=== PATIENT | female | born 1985 | race Caucasian/White ===

== ENCOUNTER 2016-11-04 18:43 | Emergency (ER) | payer OTHER ==
[2016-11-04 20:00] VITALS: RESP 20
--- NOTE | 2016-11-04 20:02 | ED ---
General Adult HPI - General Stated complaint: rt leg pain Time Seen by Provider: 11/04/16 19:59 Source: RN notes reviewed - History of Present Illness Initial comments: 30-year-old female presents emergency Department chief complaint of right knee pain. Patient states that she tripped on her stairs. Patient states that she is having pain to the anterior right knee. Patient states it is tender to touch. Patient states that she has been able to walk on it. Patient denies any fever chills with this. Patient denies any cough cold runny nose. Patient states there is no lightheadedness or dizziness before fall. She does have a history of a DVT to that leg that she is currently being treated with warfarin for. Patient states she was concerned with the anterior knee pain so she thought that she should be evaluated.Patient denies any recent fever, chills, shortness of breath, chest pain, back pain, abdominal pain, nausea vomiting, numbness or tingling, dysuria or hematuria, constipation or diarrhea, headaches or visual changes, or any other current symptoms. - Related Data Home Medications Medication Instructions Recorded Confirmed Warfarin [Coumadin] 5 mg PO DAILY 11/04/16 11/04/16 traMADol HCL [Ultram] 50 mg PO Q6HR PRN 11/04/16 11/04/16 Previous Rx's Medication Instructions Recorded Cyclobenzaprine [Flexeril] 10 mg PO TID #20 tab 04/18/16 Dexamethasone 0.75 mg PO DIRECTED #12 tablet 04/18/16 Ibuprofen [Motrin] 600 mg PO Q6HR PRN #40 day 04/18/16 Allergies Allergy/AdvReac Type Severity Reaction Status Date / Time acetaminophen [From Tylenol] AdvReac Unknown Nausea & Verified 11/04/16 20:02 Vomiting propoxyphene napsylate AdvReac Unknown Nausea & Verified 11/04/16 20:02 [From Darvocet-N 100] Vomiting aspirin AdvReac Vomiting Verified 11/04/16 20:02 hydrocodone bitartrate AdvReac Vomiting Verified 11/04/16 20:02 [From Lortab] Review of Systems ROS Statement: Those systems with pertinent positive or pertinent negative responses have been documented in the HPI. ROS Other: All systems not noted in ROS Statement are negative. Past Medical History Past Medical History: Asthma Additional Past Medical History / Comment(s): ASTHMA(NO MEDS), "SLIPPED DISC LOWER BACK", PAINFUL LUMP LEFT FLANK. History of Any Multi-Drug Resistant Organisms: None Reported Past Surgical History: Cholecystectomy, Tubal Ligation Past Anesthesia/Blood Transfusion Reactions: No Reported Reaction, Motion Sickness Past Psychological History: ADD/ADHD, Anxiety Smoking Status: Former smoker Past Alcohol Use History: None Reported Past Drug Use History: None Reported - Past Family History Mother Family Medical History: No Reported History General Exam - General Exam Comments Initial Comments: General: The patient is awake and alert, in no distress, and does not appear acutely ill. Neck: The neck is supple, there is no tenderness. Cardiovascular: There is a regular rate and rhythm. No murmur, rub or gallop is appreciated. Respiratory: Lungs are clear to auscultation, respirations are non-labored, breath sounds are equal. No wheezes, stridor, rales, or rhonchi. Musculoskeletal: Sensation intact with 2+ pulses. The left showing. Vital motion of right ankle me and hit. Patient does have anterior tenderness diffusely throughout the right knee with no abrasion deformity or ecchymosis or swelling noted. 5 out of 5 muscle strength testing. Neurological: CN II-XII intact, There are no obvious motor or sensory deficits. Coordination appears grossly intact. Speech is normal. Skin: Skin is warm and dry and no rashes or lesions are noted. Psychiatric: Normal mood and affect. Course Vital Signs 11/04/16 19:58 Temperature 98.7 F Pulse Rate 73 Respiratory 20 Rate Blood Pressure 112/73 O2 Sat by Pulse 100 Oximetry Medical Decision Making - Medical Decision Making 30-year-old female presents for appears to be a right knee contusion. X-rays are reviewed. We discussed continuing her medications at home. We discussed return parameters and follow-up. We discussed ice. We discussed all the patient's questions. They state due to the treatment plan. They will be discharged home. - Radiology Data Radiology results: report reviewed, image reviewed Disposition Clinical Impression: Contusion of right knee Disposition: HOME SELF-CARE Condition: Stable Instructions: Knee Pain (ED) Additional Instructions: Please use medication as discussed. Please follow up with family doctor if symptoms have not improved over the next two days. Please return to the emergency room if your symptoms increase or worsen or for any other concerns. Referrals: Thaddeus Craft DO [Primary Care Provider] - 1-2 days Time of Disposition: 20:22
--- NOTE | 2016-11-04 20:20 | XR ---
EXAMINATION TYPE: XR knee complete RT DATE OF EXAM: 11/04/2016 8:06 PM COMPARISON: NONE HISTORY: Pain following downstairs TECHNIQUE: Three-view right knee FINDINGS: No acute fractures are evident. No joint effusion is evident. Soft tissues appear normal. J oint spaces are preserved. Follow-up study can be performed 7-10 days from acute trauma for continued pain. IMPRESSION: 1. Normal three-view right knee.
[2016-11-04 20:35] VITALS: BP 114/70; PULSE 77; TEMP 98.2
== END 2016-11-04 20:34 | disposition home or self-care (01) ==
LOC: EC 18:43
DX: S80.01XA Contusion of right knee, initial encounter (principal); Z86.718 Personal history of other venous thrombosis and embolism; Z87.891 Personal history of nicotine dependence; Z88.6 Allergy status to analgesic agent; Z88.8 Allergy status to other drugs, medicaments and biological substances; Z88.5 Allergy status to narcotic agent; Z79.01 Long term (current) use of anticoagulants; W18.40XA Slipping, tripping and stumbling without falling, unspecified, initial encounter
CPT/HCPCS: 99283

== ENCOUNTER 2016-11-30 19:18 | Emergency (ER) | payer OTHER ==
[2016-11-30 19:32] VITALS: BP 110/72; PULSE 80; RESP 16; TEMP 99.4
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
[2016-11-30 20:34] LABS: INR 2.9 (<1.1); Prothrombin Time 27.8 sec (9.0-12.0)
== END 2016-11-30 20:52 | disposition home or self-care (01) ==
LOC: EC 19:18
DX: S80.01XA Contusion of right knee, initial encounter (principal); Z87.891 Personal history of nicotine dependence; Z79.01 Long term (current) use of anticoagulants; Z88.5 Allergy status to narcotic agent; Z88.6 Allergy status to analgesic agent; Z88.8 Allergy status to other drugs, medicaments and biological substances; V86.69XA Passenger of other special all-terrain or other off-road motor vehicle injured in nontraffic accident, initial encounter; Y92.89 Other specified places as the place of occurrence of the external cause
CPT/HCPCS: 36415; 85610; 99283

== ENCOUNTER 2016-12-14 21:05 | Emergency (ER) | payer OTHER ==
[2016-12-14] MEDS ORDERED: SODIUM CHLORIDE 0.9% 500 ML IV STA (21:49)
[2016-12-14] MEDS ORDERED: RX INFO: IV CONTRAST WAS GIVEN 1 EACH MISC MISCELLANE PRN (21:49)
[2016-12-14] MEDS ORDERED: ONDANSETRON 4 MG/2 ML VIAL IVP STA (21:49)
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
[2016-12-14 22:22] LABS: Basophils % (A) 1 %; CH 27.8; CHCM 33.8; Eosinophils # (A) 0.1 k/uL (0-0.7); Eosinophils % (A) 1 %; HDW 2.69; HGB 12.9 gm/dL (11.4-16.0); Luc # (Auto) 0.08; Luc % (Auto) 2; Lymphocytes # (A) 1.7 k/uL (1.0-4.8); Lymphocytes % (A) 37 %; MCH 28.1 pg (25.0-35.0); MCHC 33.9 g/dL (31.0-37.0); MCV 82.9 fL (80.0-100.0); Mean Platelet Volume 7.8; Monocytes # (A) 0.2 k/uL (0-1.0); Monocytes % (A) 5 %; Neutrophils # (A) 2.5 k/uL (1.3-7.7); Neutrophils % (A) 55 %; RBC 4.59 m/uL (3.80-5.40); RDW 14.1 % (11.5-15.5); WBC 4.6 k/uL (3.8-10.6)
[2016-12-14 22:31] LABS: Appearance,Urine Clear (Clear); Bilirubin,Urine Negative (Negative); Glucose,Urine (UA) Negative (Negative); Ketones,Urine Negative (Negative); Leukocyte Esterase,Urine Negative (Negative); Nitrite,Urine Negative (Negative); PH, Urine 6.5 (5.0-8.0); Protein,Urine Negative (Negative); Specific Gravity,Urine 1.003 (1.001-1.035); UA Billing (MACRO vs. MICRO) CHEM; Urobilinogen,Urine <2.0 mg/dL (<2.0)
[2016-12-14 22:35] LABS: ALT 25 U/L (9-52); AST 28 U/L (14-36); Alkaline Phosphatase 55 U/L (38-126); Amylase 55 U/L (30-110); Anion Gap 9 mmol/L; Blood Urea Nitrogen 9 mg/dL (7-17); Calcium 9.2 mg/dL (8.4-10.2); Carbon Dioxide 26 mmol/L (22-30); Chloride 104 mmol/L (98-107); Glucose 93 mg/dL (74-99); Non-African American GFR(MDRD) >60 (>60 ml/min/1.73 sqM); Potassium 4.1 mmol/L (3.5-5.1); Sodium 139 mmol/L (137-145); Total Bilirubin 0.5 mg/dL (0.2-1.3); Total Protein 7.3 g/dL (6.3-8.2)
--- NOTE | 2016-12-14 23:40 | CT ---
EXAM: CT Abdomen and Pelvis With Intravenous Contrast CLINICAL HISTORY: Reason: abdominal pain TECHNIQUE: Axial computed tomography images of the abdomen and pelvis with intravenous contrast. DLP is 1101 mGy-cm. This CT exam was performed using one or more of the following dose reduction techniques: automated exposure control, adjustment of the mA and/or kV according to patient size, and/or use of iterative reconstruction technique. COMPARISON: 01/10/16 FINDINGS: Lower thorax: No acute findings. ABDOMEN and PELVIS: Interpolar nonobstructing right renal stone. Other more questionable nonobstructive renal calcifications/stones. Suspected involuting left ovarian cyst. Pelvic free fluid. No bowel obstruction. Portions of bowel underdistended which limits evaluation for wall thickening. No perienteric inflammatory changes. No evidence for acute pancreatitis. Cholecystectomy again noted. Too small to characterize low-density liver and renal lesions. No appendicitis or other acute process. Osseous degenerative changes. Degenerative disc disease appears most severe at L5-S1 similar to prior exam. IMPRESSION: At least one nonobstructive right renal stone identified. Suspected involuting left ovarian cyst with pelvic free fluid. No bowel obstruction. Cholecystectomy and other findings, as above.
[2016-12-15 01:22] VITALS: BP 119/78; PULSE 80; RESP 16; TEMP 98.6
== END 2016-12-15 01:21 | disposition home or self-care (01) ==
LOC: EC 21:05
DX: N83.201 Unspecified ovarian cyst, right side (principal); Z90.49 Acquired absence of other specified parts of digestive tract; Z88.6 Allergy status to analgesic agent; Z88.5 Allergy status to narcotic agent; Z88.8 Allergy status to other drugs, medicaments and biological substances; Z87.891 Personal history of nicotine dependence; Z79.01 Long term (current) use of anticoagulants
CPT/HCPCS: 99284; 96374; 96361; 36415; 80053; 82150; 83690; 85025; 81003; 81025; 74177; J2405; Q9967

== ENCOUNTER 2017-02-13 15:59 | Emergency (ER) | payer OTHER ==
[2017-02-13 16:03] VITALS: BP 102/74; PULSE 84; RESP 18; TEMP 97.4
--- NOTE | 2017-02-13 16:33 | ED ---
General Adult HPI - General Chief complaint: Extremity Injury, Upper Stated complaint: Finger Swelling, Sinus Issues Time Seen by Provider: 02/13/17 16:22 Source: patient, RN notes reviewed Mode of arrival: ambulatory Limitations: no limitations - History of Present Illness Initial comments: 31-year-old female presents to the emergency Department chief complaint of left finger infection. Patient states that it started with a ring any little dots cannot scan worse. She noticed some purulent drainage from earlier. Patient states that she did not have any fever chills she's noticed the redness where she did notice this so she was concerned. Patient states she's also had some nasal congestion she says that she is on Coumadin for a recent blood clot and states that she is unable take Motrin time she is wondering if there is anything we can recommend for that. Patient states there is been no other symptoms at this time. Patient denies any fever chills.Patient denies any recent fever, chills, shortness of breath, chest pain, back pain, abdominal pain , nausea vomiting, numbness or tingling, dysuria or hematuria, constipation or diarrhea, headaches or visual changes, or any other current symptoms. - Related Data Home Medications Medication Instructions Recorded Confirmed Warfarin [Coumadin] 5 mg PO Q48H 11/04/16 02/13/17 Albuterol Inhaler [Ventolin Hfa 2 puff INHALATION RT-Q6H PRN 11/30/16 02/13/17 Inhaler] Warfarin [Coumadin] 2.5 mg PO Q48H 02/13/17 02/13/17 Previous Rx's Medication Instructions Recorded Clindamycin [Cleocin] 450 mg PO Q8HR #90 capsule 02/13/17 Allergies Allergy/AdvReac Type Severity Reaction Status Date / Time hydrocodone bitartrate Allergy Rash/Hives Verified 02/13/17 16:25 [From Lortab] ibuprofen [From Motrin] Allergy Rash/Hives Verified 02/13/17 16:25 acetaminophen [From Tylenol] AdvReac Unknown Nausea & Verified 02/13/17 16:25 Vomiting propoxyphene napsylate AdvReac Unknown Nausea & Verified 02/13/17 16:25 [From Darvocet-N 100] Vomiting aspirin AdvReac Vomiting Verified 02/13/17 16:25 Review of Systems ROS Statement: Those systems with pertinent positive or pertinent negative responses have been documented in the HPI. ROS Other: All systems not noted in ROS Statement are negative. Past Medical History Past Medical History: Asthma Additional Past Medical History / Comment(s): ASTHMA(NO MEDS), "SLIPPED DISC LOWER BACK", PAINFUL LUMP LEFT FLANK. History of Any Multi-Drug Resistant Organisms: None Reported Past Surgical History: Cholecystectomy, Tubal Ligation Past Anesthesia/Blood Transfusion Reactions: No Reported Reaction, Motion Sickness Past Psychological History: ADD/ADHD, Anxiety Smoking Status: Former smoker Past Alcohol Use History: None Reported Past Drug Use History: None Reported - Past Family History Mother Family Medical History: No Reported History General Exam - General Exam Comments Initial Comments: General: The patient is awake and alert, in no distress, and does not appear acutely ill. Neck: The neck is supple, there is no tenderness. ENT: Nasal congestion, no erythema to posterior pharynx, normal external ear canal. Cardiovascular: There is a regular rate and rhythm. No murmur, rub or gallop is appreciated. Respiratory: Lungs are clear to auscultation, respirations are non-labored, breath sounds are equal. No wheezes, stridor, rales, or rhonchi. Musculoskeletal: left upper extremity motion left hand. Patient does appear to have a small cellulitis to the left finger. Full range of motion of the left pointer finger. About 5 muscle strength testing. No streaking. No purulent discharge noted. Neurological: CN II-XII intact, There are no obvious motor or sensory deficits. Coordination appears grossly intact. Speech is normal. Skin: Skin is warm and dry and no rashes or lesions are noted. Psychiatric: Normal mood and affect. Limitations: no limitations Course Vital Signs 02/13/17 16:00 Temperature 97.4 F L Pulse Rate 84 Respiratory 18 Rate Blood Pressure 102/74 O2 Sat by Pulse 99 Oximetry Medical Decision Making - Medical Decision Making 31-year-old female presents emergency Department chief complaint of left finger infection. Illicit patient clindamycin and she is on Coumadin his symptoms have a local reaction. We discussed care of her congestion. We discussed return plan. All patient's questions. She stated she understood and she is given the plan. She will be discharged home. Disposition Clinical Impression: Cellulitis of left finger, Nasal congestion Disposition: HOME SELF-CARE Condition: Stable Instructions: Cellulitis (ED) Additional Instructions: Please use medication as discussed. Please follow up with family doctor if symptoms have not improved over the next two days. Please return to the emergency room if your symptoms increase or worsen or for any other concerns. try the nedi pot Prescriptions: Clindamycin [Cleocin] 450 mg PO Q8HR #90 capsule Referrals: Thaddeus Craft DO [Primary Care Provider] - 1-2 days Time of Disposition: 16:33
== END 2017-02-13 16:42 | disposition home or self-care (01) ==
LOC: EC 15:59
DX: L03.012 Cellulitis of left finger (principal); R09.81 Nasal congestion; Z87.891 Personal history of nicotine dependence; Z79.01 Long term (current) use of anticoagulants; Z88.5 Allergy status to narcotic agent; Z88.6 Allergy status to analgesic agent; Z88.8 Allergy status to other drugs, medicaments and biological substances
CPT/HCPCS: 99283

== ENCOUNTER 2017-02-15 23:17 | Emergency (ER) | payer OTHER ==
[2017-02-15 23:25] VITALS: RESP 16
[2017-02-15] MEDS ORDERED: MORPHINE SULFATE 2 MG/ML SYRINGE IVP ONE (23:35)
[2017-02-15] MEDS ORDERED: diphenhydrAMINE 50 MG/ML 1 ML VIAL IVP STA (23:35)
[2017-02-15] MEDS ORDERED: ONDANSETRON 4 MG/2 ML VIAL IVP STA (23:35)
[2017-02-15] MEDS ORDERED: SODIUM CHLORIDE 0.9% 500 ML IV ONE (23:36)
--- NOTE | 2017-02-15 23:39 | ED ---
Headache HPI - General Chief Complaint: Headache Stated Complaint: Head Pain Time Seen by Provider: 02/15/17 23:28 Source: patient, RN notes reviewed Mode of arrival: wheelchair Limitations: no limitations - History of Present Illness Initial Comments: This a 31-year-old female presents emergency Department with chief complaint of left-sided facial pain and headache. Patient states his been on and off for last week. She states those gets worse after she eats he feels like her left side of her face swells up. She denies any clicking popping of her jaw. She denies any dental pain at this time. She states that she cannot take anything [id number] for headache as she has ALLERGY to acetaminophen and ibuprofen. Patient states she had she does take Coumadin currently for DVT of her right leg. 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 Patient states that she denies any fevers or chills low she has a time of 100.2 here. Patient denies any dizziness or any focal weakness. Patient has no blurred vision this time. - Related Data Home Medications Medication Instructions Recorded Confirmed Warfarin [Coumadin] 5 mg PO Q48H 11/04/16 02/13/17 Albuterol Inhaler [Ventolin Hfa 2 puff INHALATION RT-Q6H PRN 11/30/16 02/13/17 Inhaler] Warfarin [Coumadin] 2.5 mg PO Q48H 02/13/17 02/13/17 Previous Rx's Medication Instructions Recorded Clindamycin [Cleocin] 450 mg PO Q8HR #90 capsule 02/13/17 Allergies Allergy/AdvReac Type Severity Reaction Status Date / Time hydrocodone bitartrate Allergy Rash/Hives Verified 02/13/17 16:25 [From Lortab] ibuprofen [From Motrin] Allergy Rash/Hives Verified 02/13/17 16:25 acetaminophen [From Tylenol] AdvReac Unknown Nausea & Verified 02/13/17 16:25 Vomiting propoxyphene napsylate AdvReac Unknown Nausea & Verified 02/13/17 16:25 [From Darvocet-N 100] Vomiting aspirin AdvReac Vomiting Verified 02/13/17 16:25 Review of Systems ROS Statement: Those systems with pertinent positive or pertinent negative responses have been documented in the HPI. ROS Other: All systems not noted in ROS Statement are negative. Past Medical History Past Medical History: Asthma, Deep Vein Thrombosis (DVT) Additional Past Medical History / Comment(s): ASTHMA(NO MEDS), "SLIPPED DISC LOWER BACK", PAINFUL LUMP LEFT FLANK. 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 History of Any Multi-Drug Resistant Organisms: None Reported Past Surgical History: Cholecystectomy, Tubal Ligation Past Anesthesia/Blood Transfusion Reactions: No Reported Reaction, Motion Sickness Past Psychological History: No Psychological Hx Reported, ADD/ADHD, Anxiety Smoking Status: Current every day smoker Past Alcohol Use History: None Reported Past Drug Use History: None Reported - Past Family History Mother Family Medical History: No Reported History General Exam Limitations: no limitations General appearance: alert, in no apparent distress Head exam: Present: atraumatic, normocephalic, normal inspection Eye exam: Present: normal appearance, PERRL, EOMI. Absent: scleral icterus, conjunctival injection, periorbital swelling ENT exam: Present: normal oropharynx, mucous membranes moist, TM's normal bilaterally, normal external ear exam. Absent: normal exam (Maxillary sinus tenderness) Neck exam: Present: normal inspection, full ROM. Absent: tenderness, meningismus, lymphadenopathy Respiratory exam: Present: normal lung sounds bilaterally. Absent: respiratory distress, wheezes, rales, rhonchi, stridor Cardiovascular Exam: Present: regular rate, normal rhythm, normal heart sounds. Absent: systolic murmur, diastolic murmur, rubs, gallop, clicks Neurological exam: Present: alert, oriented X3, CN II-XII intact, reflexes normal. Absent: motor sensory deficit Skin exam: Present: warm, dry, intact, normal color. Absent: rash Course Vital Signs 02/15/17 23:22 Temperature 100.2 F H Pulse Rate 90 Respiratory 16 Rate Blood Pressure 120/73 O2 Sat by Pulse 99 Oximetry Medical Decision Making - Medical Decision Making 31-year-old female presented for headache sinus facial pressure. Patient has acute sinusitis she recently just started clindamycin and will continue taking antibiotic. Patient will follow-up with needed with primary care physician and ENT. - Lab Data Result diagrams: 02/16/17 00:01 02/16/17 00:01 Lab Results 02/16/17 02/16/17 02/16/17 Range/Units 00:01 00:01 00:01 WBC 5.1 (3.8-10.6) k/uL RBC 4.33 (3.80-5.40) m/uL Hgb 12.1 (11.4-16.0) gm/dL Hct 35.6 (34.0-46.0) % MCV 82.2 (80.0-100.0) fL MCH 28.0 (25.0-35.0) pg MCHC 34.0 (31.0-37.0) g/dL RDW 14.4 (11.5-15.5) % Plt Count 173 (150-450) k/uL Neutrophils % 57 % Lymphocytes % 31 % Monocytes % 3 % Eosinophils % 7 % Basophils % 1 % Neutrophils # 2.9 (1.3-7.7) k/uL Lymphocytes # 1.6 (1.0-4.8) k/uL Monocytes # 0.2 (0-1.0) k/uL Eosinophils # 0.3 (0-0.7) k/uL Basophils # 0.0 (0-0.2) k/uL PT 10.6 (9.0-12.0) sec INR 1.0 (<1.2) APTT 24.5 (22.0-30.0) sec Sodium 139 (137-145) mmol/L Potassium 4.2 (3.5-5.1) mmol/L Chloride 107 (98-107) mmol/L Carbon Dioxide 22 (22-30) mmol/L Anion Gap 10 mmol/L BUN 14 (7-17) mg/dL Creatinine 1.00 (0.52-1.04) mg/dL Est GFR (MDRD) Af Amer >60 (>60 ml/min/1.73 sqM) Est GFR (MDRD) Non-Af >60 (>60 ml/min/1.73 sqM) Glucose 102 H (74-99) mg/dL Calcium 9.3 (8.4-10.2) mg/dL Disposition Clinical Impression: Sinus headache, Acute sinusitis Disposition: HOME SELF-CARE Condition: Stable Instructions: Acute Headache (ED) Additional Instructions: Please return to the Emergency Department if symptoms worsen or any other concerns. Referrals: Thaddeus Craft DO [Primary Care Provider] - 1-2 days Chadwick Estrella MD [STAFF PHYSICIAN] - 1-2 days Time of Disposition: 01:57
[2017-02-16 00:18] LABS: Basophils % (A) 1 %; CH 28.6; CHCM 34.9; Eosinophils # (A) 0.3 k/uL (0-0.7); Eosinophils % (A) 7 %; HCT 35.6 % (34.0-46.0); HGB 12.1 gm/dL (11.4-16.0); Luc # (Auto) 0.08; Luc % (Auto) 2; Lymphocytes # (A) 1.6 k/uL (1.0-4.8); Lymphocytes % (A) 31 %; MCV 82.2 fL (80.0-100.0); Mean Platelet Volume 7.8; Monocytes # (A) 0.2 k/uL (0-1.0); Monocytes % (A) 3 %; Neutrophils # (A) 2.9 k/uL (1.3-7.7); Neutrophils % (A) 57 %; RBC 4.33 m/uL (3.80-5.40); RDW 14.4 % (11.5-15.5); WBC 5.1 k/uL (3.8-10.6); WBC (Perox) 4.92
[2017-02-16 00:30] LABS: Anion Gap 10 mmol/L; Blood Urea Nitrogen 14 mg/dL (7-17); Calcium 9.3 mg/dL (8.4-10.2); Carbon Dioxide 22 mmol/L (22-30); Chloride 107 mmol/L (98-107); Glucose 102 mg/dL (74-99); Non-African American GFR(MDRD) >60 (>60 ml/min/1.73 sqM); Potassium 4.2 mmol/L (3.5-5.1); Sodium 139 mmol/L (137-145)
[2017-02-16 00:45] LABS: Partial Thromboplastin Time 24.5 sec (22.0-30.0); Prothrombin Time 10.6 sec (9.0-12.0)
--- NOTE | 2017-02-16 01:54 | CT ---
PROCEDURE: CT HEAD Without Contrast PROCEDURE: CT SINUSES Without Contrast HISTORY: 24-year-old female with headache and facial pain. COMPARISON: None TECHNIQUE: CT imaging was obtained through the head and face. Coronal and sagittal reformations were performed through the head. Coronal reformations were performed through the face. DOSE: CT head and face: Total Exam volume computed tomography dose index (CTDIvol) = 88 mGy and Dose Length Product (DLP) = 1285.3 mGY-cm. This CT exam was performed using one or more of the following dose reduction techniques: automated exposure control, adjustment of the mA and/or kV according to patient size, and/or use of iterative reconstruction technique. FINDINGS: HEAD: There is no evidence of acute intracranial hemorrhage, mass effect, or midline shift. The ventricles, sulci, and cisternal spaces are within normal limits. The young-white matter differentiation is preserved. The bony structures are intact. FACIAL: Bony structures are intact. Mild ethmoid, maxillary, and sphenoid sinus mucosal thickening. There are small air-fluid levels within the right ethmoid air cells, right maxillary sinus, and right sphenoid sinus, which may be due to acute sinusitis. The right ostiomeatal unit appears occluded. Visualized mastoid air cells are clear. Intraorbital structures are within normal limits. No abnormal pharyngeal or retropharyngeal thickening. There are a few mildly enlarged right cervical lymph nodes. IMPRESSION: 1. No CT evidence of acute intracranial abnormality. 2. There are small air-fluid levels within the right ethmoid air cells, right maxillary sinus, and right sphenoid sinus, which may be due to acute sinusitis. 3. The right ostiomeatal unit appears occluded. 4. Other findings as detailed above.
[2017-02-16 02:56] VITALS: BP 118/58; PULSE 60; TEMP 97.8
== END 2017-02-16 02:53 | disposition home or self-care (01) ==
LOC: EC 23:17
DX: J01.90 Acute sinusitis, unspecified (principal); D68.2 Hereditary deficiency of other clotting factors; F17.200 Nicotine dependence, unspecified, uncomplicated; Z79.01 Long term (current) use of anticoagulants; Z88.5 Allergy status to narcotic agent; Z88.6 Allergy status to analgesic agent; Z88.8 Allergy status to other drugs, medicaments and biological substances; Z86.718 Personal history of other venous thrombosis and embolism
CPT/HCPCS: 36415; 80048; 85025; 85610; 85730; 87040; 70450; 70486; 99284; 96374; 96375 ×2; 96361 ×3; J1200; J2405; J2270

== ENCOUNTER → 2017-02-17 | Outpatient (CLI) | payer OTHER ==
--- NOTE | 2017-02-17 10:48 | US ---
EXAMINATION TYPE: US venous doppler duplex LE BI DATE OF EXAM: 02/17/2017 10:20 AM COMPARISON: NONE CLINICAL HISTORY: I82.411 PE/DVT. History of DVT right leg 08/05. Patient on blood thinner SIDE PERFORMED: bilateral TECHNIQUE: The lower extremity deep venous system is examined utilizing real time linear array sonog dana with graded compression, doppler sonography and color-flow sonography. VESSELS IMAGED: External Iliac Vein (EIV) Common Femoral Vein Deep Femoral Vein Greater Saphenous Vein * Femoral Vein Popliteal Vein Small Saphenous Vein * Proximal Calf Veins (* superficial vessels) Right Leg: ++Positive for DVT. Thready flow with partial compression right femoral vein extending in to popliteal vein. Left Leg: No evidence of DVT IMPRESSION: Deep venous thrombosis is present within the right lower extremity. Results were provided to cement in the office at the time of interpretation.
== END ==
LOC: RADUSWWP 09:38
PROVIDERS: ATTEND Internal Medicine Hematology & Oncology
DX: I82.401 Acute embolism and thrombosis of unspecified deep veins of right lower extremity (principal)
CPT/HCPCS: 93970

== ENCOUNTER 2017-03-21 20:39 | Emergency (ER) | payer OTHER ==
[2017-03-21 20:57] VITALS: BP 115/71; PULSE 72; RESP 18; TEMP 97.9
[2017-03-21] MEDS ORDERED: SODIUM CHLORIDE 0.9% 1,000 ML IV STA (21:41)
[2017-03-21] MEDS ORDERED: METOCLOPRAMIDE 5 MG/ML 2 ML VIAL IVP STA (21:41)
--- NOTE | 2017-03-21 21:44 | ED ---
General Adult HPI - General Chief complaint: Headache Stated complaint: Post Concussion Headache Time Seen by Provider: 03/21/17 21:37 Source: patient, RN notes reviewed Mode of arrival: ambulatory Limitations: no limitations - History of Present Illness Initial comments: 31-year-old female presents for evaluation of headache. Patient has an occipital frontal headache which is been present for approximately 2 weeks. Patient states that 2 weeks ago she had head trauma, laboratory loss of consciousness. She was evaluated at another emergency department and did receive computed tomography scan at that time. Patient is on Coumadin for right lower extremity DVT. She states the CAT scan was negative per she was discharged home. She has had persistent headache since that time. No significant nausea or vomiting. No focal weakness. Patient has been unable to follow up with her primary care physician, she does have an appointment on the of this month. - Related Data Home Medications Medication Instructions Recorded Confirmed Warfarin [Coumadin] 5 mg PO DAILY 11/04/16 03/21/17 Allergies Allergy/AdvReac Type Severity Reaction Status Date / Time hydrocodone bitartrate Allergy Rash/Hives Verified 03/21/17 22:01 [From Lortab] ibuprofen [From Motrin] Allergy Rash/Hives Verified 03/21/17 22:01 acetaminophen [From Tylenol] AdvReac Unknown Nausea & Verified 03/21/17 22:01 Vomiting propoxyphene napsylate AdvReac Unknown Nausea & Verified 03/21/17 22:01 [From Darvocet-N 100] Vomiting aspirin AdvReac Vomiting Verified 03/21/17 22:01 Review of Systems ROS Statement: Those systems with pertinent positive or pertinent negative responses have been documented in the HPI. ROS Other: All systems not noted in ROS Statement are negative. Past Medical History Past Medical History: Asthma, Deep Vein Thrombosis (DVT) Additional Past Medical History / Comment(s): ASTHMA(NO MEDS), "SLIPPED DISC LOWER BACK", PAINFUL LUMP LEFT FLANK. 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 History of Any Multi-Drug Resistant Organisms: None Reported Past Surgical History: Cholecystectomy, Tubal Ligation Past Anesthesia/Blood Transfusion Reactions: No Reported Reaction, Motion Sickness Past Psychological History: No Psychological Hx Reported, ADD/ADHD, Anxiety Smoking Status: Current every day smoker Past Alcohol Use History: None Reported Past Drug Use History: None Reported - Past Family History Mother Family Medical History: No Reported History General Exam Limitations: no limitations General appearance: alert, in no apparent distress Eye exam: Present: normal appearance, PERRL, EOMI ENT exam: Present: normal exam Neck exam: Present: normal inspection. Absent: tenderness Respiratory exam: Present: normal lung sounds bilaterally. Absent: respiratory distress Cardiovascular Exam: Present: regular rate, normal rhythm GI/Abdominal exam: Present: soft. Absent: distended, tenderness Extremities exam: Present: normal inspection, normal capillary refill. Absent: pedal edema Neurological exam: Present: alert, oriented X3, CN II-XII intact. Absent: motor sensory deficit Psychiatric exam: Present: normal affect, normal mood Skin exam: Present: warm, dry, intact. Absent: cyanosis, diaphoretic Course Vital Signs 03/21/17 20:53 Temperature 97.9 F Pulse Rate 72 Respiratory 18 Rate Blood Pressure 115/71 O2 Sat by Pulse 100 Oximetry Medical Decision Making - Medical Decision Making 31-year-old female presenting for headache status post minor head trauma. Patient is on Coumadin for DVT. Laboratory studies were obtained INR was subtherapeutic at 1.2. Prior to head CT patient decided she needed to leave. She left AGAINST MEDICAL ADVICE. Patient was informed of the risks of leaving without head CT. She did understand this. Patient's neurologic exam was nonfocal. And INR was subtherapeutic. She will return to the emergency department with worsening symptoms. She will follow-up with her primary care physician. - Lab Data Result diagrams: 03/21/17 22:25 03/21/17 22:25 Lab Results 03/21/17 03/21/17 03/21/17 Range/Units 22:25 22:25 22:25 WBC 3.2 L (3.8-10.6) k/uL RBC 4.40 (3.80-5.40) m/uL Hgb 12.2 (11.4-16.0) gm/dL Hct 37.5 (34.0-46.0) % MCV 85.2 (80.0-100.0) fL MCH 27.7 (25.0-35.0) pg MCHC 32.6 (31.0-37.0) g/dL RDW 14.6 (11.5-15.5) % Plt Count 159 (150-450) k/uL Neutrophils % 55 % Lymphocytes % 36 % Monocytes % 5 % Eosinophils % 1 % Basophils % 1 % Neutrophils # 1.8 (1.3-7.7) k/uL Lymphocytes # 1.2 (1.0-4.8) k/uL Monocytes # 0.2 (0-1.0) k/uL Eosinophils # 0.0 (0-0.7) k/uL Basophils # 0.0 (0-0.2) k/uL PT 12.3 H (9.0-12.0) sec INR 1.2 H (<1.2) APTT 25.8 (22.0-30.0) sec Sodium 141 (137-145) mmol/L Potassium 3.9 (3.5-5.1) mmol/L Chloride 104 (98-107) mmol/L Carbon Dioxide 27 (22-30) mmol/L Anion Gap 10 mmol/L BUN 10 (7-17) mg/dL Creatinine 0.73 (0.52-1.04) mg/dL Est GFR (MDRD) Af Amer >60 (>60 ml/min/1.73 sqM) Est GFR (MDRD) Non-Af >60 (>60 ml/min/1.73 sqM) Glucose 88 (74-99) mg/dL Calcium 9.2 (8.4-10.2) mg/dL Total Bilirubin 0.2 (0.2-1.3) mg/dL AST 22 (14-36) U/L ALT 31 (9-52) U/L Alkaline Phosphatase 52 (38-126) U/L Total Protein 7.5 (6.3-8.2) g/dL Albumin 3.9 (3.5-5.0) g/dL Disposition Clinical Impression: Headache Disposition: Left Against Medical Advice Referrals: Thaddeus Craft DO [Primary Care Provider] - 1-2 days Time of Disposition: 23:03
[2017-03-21 22:40] LABS: Basophils % (A) 1 %; CH 28.4; CHCM 33.6; Eosinophils % (A) 1 %; HCT 37.5 % (34.0-46.0); HGB 12.2 gm/dL (11.4-16.0); Luc # (Auto) 0.05; Luc % (Auto) 2; Lymphocytes # (A) 1.2 k/uL (1.0-4.8); Lymphocytes % (A) 36 %; MCH 27.7 pg (25.0-35.0); MCHC 32.6 g/dL (31.0-37.0); MCV 85.2 fL (80.0-100.0); Mean Platelet Volume 7.7; Monocytes # (A) 0.2 k/uL (0-1.0); Monocytes % (A) 5 %; Neutrophils # (A) 1.8 k/uL (1.3-7.7); Neutrophils % (A) 55 %; RDW 14.6 % (11.5-15.5); WBC 3.2 k/uL (3.8-10.6)
[2017-03-21 22:46] LABS: ALT 31 U/L (9-52); AST 22 U/L (14-36); Alkaline Phosphatase 52 U/L (38-126); Anion Gap 10 mmol/L; Blood Urea Nitrogen 10 mg/dL (7-17); Calcium 9.2 mg/dL (8.4-10.2); Carbon Dioxide 27 mmol/L (22-30); Chloride 104 mmol/L (98-107); Glucose 88 mg/dL (74-99); Non-African American GFR(MDRD) >60 (>60 ml/min/1.73 sqM); Potassium 3.9 mmol/L (3.5-5.1); Sodium 141 mmol/L (137-145); Total Bilirubin 0.2 mg/dL (0.2-1.3); Total Protein 7.5 g/dL (6.3-8.2)
[2017-03-21 22:48] LABS: INR 1.2 (<1.2); Prothrombin Time 12.3 sec (9.0-12.0)
[2017-03-21 22:49] LABS: Partial Thromboplastin Time 25.8 sec (22.0-30.0)
== END 2017-03-21 22:45 | disposition left against medical advice (07) ==
LOC: EC 20:39
DX: R51 Headache (principal); I82.401 Acute embolism and thrombosis of unspecified deep veins of right lower extremity; F17.200 Nicotine dependence, unspecified, uncomplicated; Z79.01 Long term (current) use of anticoagulants; Z88.5 Allergy status to narcotic agent; Z88.6 Allergy status to analgesic agent; W51.XXXD Accidental striking against or bumped into by another person, subsequent encounter
CPT/HCPCS: 99283 ×2; 96374 ×2; 36415; 80053; 85025; 85610; 85730; J2765

== ENCOUNTER 2017-05-02 21:00 | Emergency (ER) | payer OTHER ==
[2017-05-02 21:06] VITALS: BP 113/67; PULSE 90; RESP 20; TEMP 98.2
[2017-05-02] MEDS ORDERED: ORPHENADRINE 30 MG/ML 2 ML VIAL IM STA (21:59)
[2017-05-02] MEDS ORDERED: MORPHINE SULFATE 10 MG/ML SYRINGE IM STA (21:59)
--- NOTE | 2017-05-02 22:19 | XR ---
EXAMINATION TYPE: XR lumbar spine 2 or 3V DATE OF EXAM: 05/02/2017 COMPARISON: 03/03/2013 HISTORY: Back pain TECHNIQUE: 3 views FINDINGS: Lumbar vertebra have normal spacing and alignment. Posterior elements are intact. Sacroilia c joints appear normal. IMPRESSION: Normal lumbar spine. No change.
--- NOTE | 2017-05-02 22:25 | ED ---
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 He reports it started after she fell down the stairs. She had a CAT scan of her lower spinous that time. Showed no fractures. She reports that she 's been on tramadol since that time for the pain. She reports is not helping. She states this terrible for her to lay in certain positions. Denies any redness or swelling over her tailbone. Patient states that she's had no fever or chills. She states that she's had no saddle anesthesias. Patient is concerned because the pain is not getting any better. She has not seen an orthopedic.Patient denies any recent fever, chills, shortness of breath, chest pain, abdominal pain, nausea vomiting, numbness or tingling, dysuria or hematuria, constipation or diarrhea, headaches or visual changes, or any other current symptoms - Related Data Home Medications Medication Instructions Recorded Confirmed Warfarin [Coumadin] 5 mg PO DAILY 11/04/16 05/02/17 Previous Rx's Medication Instructions Recorded Baclofen [Lioresal] 10 mg PO TID #15 tablet 05/02/17 Allergies Allergy/AdvReac Type Severity Reaction Status Date / Time hydrocodone bitartrate Allergy Rash/Hives Verified 05/02/17 21:06 [From Lortab] ibuprofen [From Motrin] Allergy Rash/Hives Verified 05/02/17 21:06 acetaminophen [From Tylenol] AdvReac Unknown Nausea & Verified 05/02/17 21:06 Vomiting propoxyphene napsylate AdvReac Unknown Nausea & Verified 05/02/17 21:06 [From Darvocet-N 100] Vomiting aspirin AdvReac Vomiting Verified 05/02/17 21:06 Review of Systems ROS Statement: Those systems with pertinent positive or pertinent negative responses have been documented in the HPI. ROS Other: All systems not noted in ROS Statement are negative. Past Medical History Past Medical History: Asthma, Deep Vein Thrombosis (DVT) Additional Past Medical History / Comment(s): ASTHMA(NO MEDS), "SLIPPED DISC LOWER BACK", PAINFUL LUMP LEFT FLANK. 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 History of Any Multi-Drug Resistant Organisms: None Reported Past Surgical History: Cholecystectomy, Tubal Ligation Past Anesthesia/Blood Transfusion Reactions: No Reported Reaction, Motion Sickness Past Psychological History: No Psychological Hx Reported, ADD/ADHD, Anxiety Smoking Status: Current every day smoker Past Alcohol Use History: None Reported Past Drug Use History: None Reported - Past Family History Mother Family Medical History: No Reported History General Exam - General Exam Comments Initial Comments: This is a 31 year old female, no distress Limitations: no limitations General appearance: alert, in no apparent distress Head exam: Present: atraumatic, normocephalic, normal inspection Eye exam: Present: normal appearance, PERRL, EOMI. Absent: scleral icterus, conjunctival injection, periorbital swelling ENT exam: Present: normal exam, mucous membranes moist Neck exam: Present: normal inspection. Absent: tenderness, meningismus, lymphadenopathy Respiratory exam: Present: normal lung sounds bilaterally. Absent: respiratory distress, wheezes, rales, rhonchi, stridor Cardiovascular Exam: Present: regular rate, normal rhythm, normal heart sounds. Absent: systolic murmur, diastolic murmur, rubs, gallop, clicks GI/Abdominal exam: Present: soft, normal bowel sounds. Absent: distended, tenderness, guarding, rebound, rigid Extremities exam: Present: normal inspection, full ROM, normal capillary refill. Absent: tenderness, pedal edema, joint swelling, calf tenderness Back exam: Present: normal inspection Neurological exam: Present: alert, oriented X3, CN II-XII intact Psychiatric exam: Present: normal affect, normal mood Skin exam: Present: warm, dry, intact, normal color. Absent: rash Course Vital Signs 05/02/17 21:04 Temperature 98.2 F Pulse Rate 90 Respiratory 20 Rate Blood Pressure 113/67 O2 Sat by Pulse 99 Oximetry Medical Decision Making - Medical Decision Making [id number] male chief complaint of lower back pain. She does have some tenderness over the lumbar spine. No evidence of a pilonidal abscess. The pain started 2 months after she fell down stairs. Lumbar spine x-rays were completed today and showed no fracture spray she has no saddle anesthesia. Given IM injections of pain medicine. 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 She needs to continue tramadol. Discussing dorsum muscle relaxers well. Patient agrees to treatment plan will comply. Return parameters were discussed. - Radiology Data Radiology results: report reviewed Lumbar spine shows no acute changes. Disposition Clinical Impression: Lumbar back pain Disposition: HOME SELF-CARE Condition: Good Instructions: Acute Low Back Pain (ED) Additional Instructions: Patient has follow-up with her primary care provider and lumbar spinal specialist. Patient is using apply heat and ice to the back. She did take muscle axis to take Ultram. Return to emergency department if any alarming signs or symptoms occur. Prescriptions: Baclofen [Lioresal] 10 mg PO TID #15 tablet Referrals: Thaddeus Craft DO [Primary Care Provider] - 1-2 days Time of Disposition: 22:23
== END 2017-05-02 22:37 | disposition home or self-care (01) ==
LOC: EC 21:00
DX: M54.5 Low back pain (principal); F17.200 Nicotine dependence, unspecified, uncomplicated; Z86.718 Personal history of other venous thrombosis and embolism; Z88.6 Allergy status to analgesic agent; Z88.5 Allergy status to narcotic agent; Z79.01 Long term (current) use of anticoagulants
CPT/HCPCS: 99284; 96372 ×2; 72100; J2360; J2270

== ENCOUNTER → 2017-08-04 | Outpatient (CLI) | payer OTHER ==
--- NOTE | 2017-08-04 12:56 | MR ---
EXAMINATION TYPE: MR lumbar spine wo/w con DATE OF EXAM: 08/04/2017 COMPARISON: Plain film 05/02/2017 HISTORY: Contusion lower back and Pelvis, low back pain TECHNIQUE: Multiplanar, multisequence images of the lumbar spine were acquired utilizing [address] gadolinium contrast. L1-L2: Normal disc appearance without desiccation. No herniation, protrusion or disc bulging. No ca nal stenosis is present. Foramina are patent bilaterally. L2-L3: Normal disc appearance without desiccation. No herniation, protrusion or disc bulging. No ca nal stenosis is present. Foramina are patent bilaterally. L3-L4: Normal disc appearance without desiccation. No herniation, protrusion or disc bulging. No ca nal stenosis is present. Foramina are patent bilaterally. L4-L5: Concentric disc bulge towards the left causes mild anterolateral mass effect on the thecal sac , no significant central stenosis or foraminal encroachment. L5-S1: There is a posterior disc herniation present contacting the anterior thecal sac and causing so me mass effect anterior laterally eccentric towards the left as well as mass effect on the left S1 ne rve root. No evident central canal stenosis or foraminal encroachment. Lumbar segments are intact. No paraspinal masses are identified. Conus medullaris has a normal appe arance. Lumbar vertebral bodies show preserved height and alignment. Loss of disc height and signal p resent at L5-S1 compatible with disc desiccation and degenerative disc disease, suspect a vacuum phen omenon present. No abnormal enhancement following contrast administration. IMPRESSION: Posterior disc herniation L5-S1, correlate for left S1 radiculopathy.
== END | disposition home or self-care (01) ==
LOC: RADMRIMAIN 10:09
PROVIDERS: ATTEND Family Medicine
DX: M51.27 Other intervertebral disc displacement, lumbosacral region (principal)
CPT/HCPCS: 72158; A9581

== ENCOUNTER → 2017-08-23 | Outpatient (CLI) | payer OTHER ==
--- NOTE | 2017-08-23 11:22 | US ---
EXAMINATION TYPE: US venous doppler duplex LE DATE OF EXAM: 08/23/2017 9:21 AM COMPARISON: US 2017 CLINICAL HISTORY: I82.411 HX Of DVT. Right lower leg swelling x couple days, history of right leg DVT , patient on blood thinners SIDE PERFORMED: Bilateral TECHNIQUE: The lower extremity deep venous system is examined utilizing real time linear array sonog dana with graded compression, doppler sonography and color-flow sonography. VESSELS IMAGED: External Iliac Vein (EIV) Common Femoral Vein Deep Femoral Vein Greater Saphenous Vein * Femoral Vein Popliteal Vein Small Saphenous Vein * Proximal Calf Veins (* superficial vessels) Right Leg: Positive for non-occluding DVT mid and distal femoral vein and mid and distal popliteal v ein Left Leg: Appears negative for DVT Bilateral groin lymph nodes with largest on right 1.6cm and largest on left 1.7cm IMPRESSION: 1. Deep venous thrombosis right lower extremity. This appears non occlusive. Consider chronic DVT as well. 2. Bilateral inguinal lymphadenopathy.
== END | disposition home or self-care (01) ==
LOC: RADUSWWP 08:36
PROVIDERS: ATTEND Internal Medicine Hematology & Oncology
DX: I82.401 Acute embolism and thrombosis of unspecified deep veins of right lower extremity (principal); R59.1 Generalized enlarged lymph nodes
CPT/HCPCS: 93970

== ENCOUNTER 2017-09-25 08:54 | Emergency (ER) | payer OTHER ==
[2017-09-25] MEDS ORDERED: traMADol 50 MG STARTER PACK 3 TAB BTL PO STA (09:18)
--- NOTE | 2017-09-25 09:20 | ED ---
Back Pain HPI - General Chief Complaint: Back Pain/Injury Stated Complaint: Herniated disc in lower lumbar Time Seen by Provider: 09/25/17 09:04 Source: patient, RN notes reviewed, old records reviewed Limitations: no limitations - History of Present Illness Initial Comments: this is a 31-year-old female presents emergency Department chief complaint acute exacerbation of chronic back pain. She reports that she fell down 2 of her basement stairs a few days ago. She is planning to see a spine surgeon. She states that she is appointment tomorrow. She is out of her pain medication from her primary care provider. She does have an appointment with her primary care provider next week. She relates that she has no saddle anesthesias. The pain radiates down both legs though. She states that she's had no changes in urination or bowel habits. No abdominal pain, chest pain, or shortness of breath. - Related Data Home Medications Medication Instructions Recorded Confirmed Albuterol Inhaler [Ventolin Hfa 1 - 2 puff INHALATION RT-Q6H PRN 09/25/17 Inhaler] Hydrocodone/Acetaminophen [[place] 0.5 - 1 tab PO TID PRN 09/25/17 09/25/17 5-325] Rivaroxaban [Xarelto] 20 mg PO QAM 09/25/17 09/25/17 Allergies Allergy/AdvReac Type Severity Reaction Status Date / Time acetaminophen [From Tylenol] Allergy Unknown Rash/Hives Verified 09/25/17 09:13 hydrocodone bitartrate Allergy Rash/Hives Verified 09/25/17 09:13 [From Lortab] ibuprofen [From Motrin] Allergy Rash/Hives Verified 09/25/17 09:00 propoxyphene napsylate AdvReac Unknown Nausea & Verified 09/25/17 09:00 [From Darvocet-N 100] Vomiting aspirin AdvReac Vomiting Verified 09/25/17 09:00 Review of Systems ROS Statement: Those systems with pertinent positive or pertinent negative responses have been documented in the HPI. ROS Other: All systems not noted in ROS Statement are negative. Past Medical History Past Medical History: Asthma, Deep Vein Thrombosis (DVT) Additional Past Medical History / Comment(s): ASTHMA(NO MEDS), "SLIPPED DISC LOWER BACK", PAINFUL LUMP LEFT FLANK. 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 No distress. Limitations: no limitations General appearance: alert, in no apparent distress Head exam: Present: atraumatic, normocephalic, normal inspection Eye exam: Present: normal appearance, PERRL, EOMI. Absent: scleral icterus, conjunctival injection, periorbital swelling ENT exam: Present: normal exam, mucous membranes moist Respiratory exam: Present: normal lung sounds bilaterally. Absent: respiratory distress, wheezes, rales, rhonchi, stridor Cardiovascular Exam: Present: regular rate, normal rhythm, normal heart sounds. Absent: systolic murmur, diastolic murmur, rubs, gallop, clicks Back exam: Present: normal inspection, paraspinal tenderness, vertebral tenderness (lumbar spinal tenderness and paraspinal tenderness noted.) Neurological exam: Present: alert, oriented X3, CN II-XII intact Psychiatric exam: Present: normal affect, normal mood Skin exam: Present: warm, dry, intact, normal color. Absent: rash Course Vital Signs 09/25/17 08:56 Temperature 97.3 F L Pulse Rate 76 Respiratory 18 Rate Blood Pressure 109/58 O2 Sat by Pulse 98 Oximetry Medical Decision Making - Medical Decision Making 31-year-old female with lower back pain. She reports it was worsened shot up 2 stairs yesterday. Patient will receive some x-rays of her lumbar spine. She is on a pain contract. Discussed I'll not write her for any pain medication. I will give her a starter pack for Ultram.patient x-rays reviewed and negative for any significant abnormalities. She is given copies of his x-rays. She is following up tomorrow with the patient's specialist and back surgeon due to herniated disc. Discussed that I will send her with a started pack for Ultram will not refer any further medication. She is on a contract. Patient understands treatment plan will comply. Return parameters were discussed. - Radiology Data Radiology results: report reviewed x-ray of the lumbar spine was reviewed and negative for any acute process.Alignment is anatomic. Pelvic is are intact. Transverse processes are intact. No spinal listhesis or spondylolysis. Patient has postsurgical changes in the right upper quadrant correlate for previous cholecystectomy. Stable appearing calcification over the left sacrum. This was read by Dr. Samuels. Disposition Clinical Impression: Acute exacerbation of chronic low back pain Disposition: HOME SELF-CARE Condition: Good Instructions: Acute Low Back Pain (ED) Additional Instructions: Patient has follow-up with orthopedic eviction specialist tomorrow. He did take a starter pack medication. Return to the emergency department if any alarming signs or symptoms occur. Referrals: Thaddeus Craft DO [Primary Care Provider] - 1-2 days Time of Disposition: 10:04
--- NOTE | 2017-09-25 09:38 | XR ---
EXAM TYPE: LUMBAR SPINE X RAY SERIES COMPARISON: 05/02/2017 HISTORY: Pain TECHNIQUE: 3 views are submitted. FINDINGS: Alignment is anatomic. The pedicles are intact. The transverse processes are intact. There is no s pondylolysis or spondylolisthesis. Postsurgical change right upper quadrant. Correlate for previous cholecystectomy. Stable appearing calcification overlying the left sacrum. IMPRESSION: 1. No acute process.
[2017-09-25 10:25] VITALS: BP 99/66; PULSE 67; RESP 16; TEMP 97.8
== END 2017-09-25 10:25 | disposition home or self-care (01) ==
LOC: EC 08:54
DX: M54.5 Low back pain (principal); G89.29 Other chronic pain; F17.200 Nicotine dependence, unspecified, uncomplicated; Z86.718 Personal history of other venous thrombosis and embolism; Z79.01 Long term (current) use of anticoagulants; Z88.6 Allergy status to analgesic agent; Z88.8 Allergy status to other drugs, medicaments and biological substances; Z88.5 Allergy status to narcotic agent
CPT/HCPCS: 72100; 99284

== ENCOUNTER → 2017-11-15 | Outpatient (CLI) | payer OTHER ==
[2017-11-15 14:13] LABS: Basophils % (A) 0 %; Eosinophils % (A) 1 %; HCT 37.3 % (34.0-46.0); HGB 11.9 gm/dL (11.4-16.0); Lymphocytes # (A) 0.9 k/uL (1.0-4.8); Lymphocytes % (A) 27 %; MCH 26.8 pg (25.0-35.0); MCHC 31.9 g/dL (31.0-37.0); MCV 84.1 fL (80.0-100.0); Mean Platelet Volume 7.7; Monocytes # (A) 0.2 k/uL (0-1.0); Monocytes % (A) 5 %; Neutrophils # (A) 2.3 k/uL (1.3-7.7); Neutrophils % (A) 67 %; Platelet Count 138 k/uL (150-450); RBC 4.44 m/uL (3.80-5.40); RDW 14.1 % (11.5-15.5); WBC 3.5 k/uL (3.8-10.6)
[2017-11-15 14:14] LABS: INR 1.1 (<1.2); Partial Thromboplastin Time 25.3 sec (22.0-30.0); Prothrombin Time 10.4 sec (9.0-12.0)
[2017-11-15 14:21] LABS: Appearance,Urine Clear (Clear); Bilirubin,Urine Negative (Negative); Blood,Urine Negative (Negative); Color,Urine Yellow; Glucose,Urine (UA) Negative (Negative); Ketones,Urine Negative (Negative); Leukocyte Esterase,Urine Negative (Negative); Nitrite,Urine Negative (Negative); PH, Urine 6.5 (5.0-8.0); Protein,Urine Negative (Negative); Specific Gravity,Urine 1.018 (1.001-1.035); Urobilinogen,Urine <2.0 mg/dL (<2.0)
[2017-11-15 14:25] LABS: ALT 31 U/L (9-52); AST 26 U/L (14-36); Albumin 3.8 g/dL (3.5-5.0); Alkaline Phosphatase 47 U/L (38-126); Anion Gap 13 mmol/L; Blood Urea Nitrogen 13 mg/dL (7-17); Carbon Dioxide 22 mmol/L (22-30); Chloride 104 mmol/L (98-107); Glucose 87 mg/dL (74-99); Potassium 3.9 mmol/L (3.5-5.1); Sodium 139 mmol/L (137-145); Total Bilirubin 0.3 mg/dL (0.2-1.3)
== END | disposition home or self-care (01) ==
LOC: LABWHC1 13:08
PROVIDERS: ATTEND Neurological Surgery
DX: M51.16 Intervertebral disc disorders with radiculopathy, lumbar region (principal); M43.17 Spondylolisthesis, lumbosacral region
CPT/HCPCS: 36415; 80053; 81003; 85025; 85610; 85730; 86850; 86900; 86901; 87070; 87086

== ENCOUNTER 2018-01-06 21:23 | Emergency (ER) | payer OTHER ==
[2018-01-06] MEDS ORDERED: ONDANSETRON 4 MG/2 ML VIAL IVP STA (22:02)
[2018-01-06] MEDS ORDERED: SODIUM CHLORIDE 0.9% 500 ML IV STA (22:02)
[2018-01-06 22:38] LABS: Appearance,Urine Clear (Clear); Bilirubin,Urine Negative (Negative); Blood,Urine Negative (Negative); Color,Urine Yellow; Glucose,Urine (UA) Negative (Negative); Ketones,Urine Negative (Negative); Leukocyte Esterase,Urine Trace (Negative); Mucus,Urine Moderate /hpf; Nitrite,Urine Negative (Negative); Protein,Urine Negative (Negative); RBC,Urine 1 /hpf (0-5); Specific Gravity,Urine 1.021 (1.001-1.035); Squamous Epithelial Cell,Urine 2 /hpf (0-4); WBC,Urine 18 /hpf (0-5)
[2018-01-06 22:40] LABS: Basophils % (A) 1 %; Eosinophils # (A) 0.2 k/uL (0-0.7); Eosinophils % (A) 4 %; HCT 35.6 % (34.0-46.0); HGB 11.9 gm/dL (11.4-16.0); Lymphocytes # (A) 1.7 k/uL (1.0-4.8); Lymphocytes % (A) 36 %; MCH 27.4 pg (25.0-35.0); MCHC 33.4 g/dL (31.0-37.0); MCV 82.1 fL (80.0-100.0); Mean Platelet Volume 7.7; Monocytes # (A) 0.2 k/uL (0-1.0); Monocytes % (A) 4 %; Neutrophils # (A) 2.4 k/uL (1.3-7.7); Neutrophils % (A) 53 %; Platelet Count 168 k/uL (150-450); RBC 4.33 m/uL (3.80-5.40); RDW 13.3 % (11.5-15.5); WBC 4.6 k/uL (3.8-10.6)
[2018-01-06 22:45] LABS: ALT 24 U/L (9-52); AST 19 U/L (14-36); Albumin 3.7 g/dL (3.5-5.0); Alkaline Phosphatase 65 U/L (38-126); Amylase 57 U/L (30-110); Anion Gap 9 mmol/L; Blood Urea Nitrogen 10 mg/dL (7-17); Carbon Dioxide 23 mmol/L (22-30); Chloride 109 mmol/L (98-107); Glucose 117 mg/dL (74-99); Lipase 60 U/L (23-300); Potassium 3.6 mmol/L (3.5-5.1); Sodium 141 mmol/L (137-145); Total Bilirubin 0.3 mg/dL (0.2-1.3); Total Protein 7.2 g/dL (6.3-8.2)
--- NOTE | 2018-01-06 22:57 | XR ---
EXAMINATION TYPE: XR abdomen acute w cxr DATE OF EXAM: 01/06/2018 COMPARISON: 01/18/2016 HISTORY: Nausea and vomiting TECHNIQUE: Chest x-ray with supine and upright abdomen FINDINGS: Heart and mediastinum are normal. Lungs are clear. Diaphragm is normal. Bony thorax appears normal. A ll gas pattern is normal. Fecal pattern is normal. There are clips from cholecystectomy. There is lum bar spine surgery noted. There are no pathologic calcifications over the kidneys.. IMPRESSION: Normal chest. Nonacute abdomen. No change.
[2018-01-06 23:26] VITALS: RESP 16; TEMP 98.1
--- NOTE | 2018-01-06 23:49 | ED ---
General Adult HPI - General Chief complaint: Nausea/Vomiting/Diarrhea Stated complaint: Sneezing Time Seen by Provider: 01/06/18 21:44 Source: patient, family Mode of arrival: ambulatory Limitations: no limitations - History of Present Illness Initial comments: 32 years old female had a back surgery on now December 15 she also has some history of blood clots and on his overall toe and she said she was exposed to somebody who has pneumonia and bronchitis she was worried about catching the she comes in with the nausea and vomiting for last 7 days her appetite has been down and she feels weak he also has a factor V disease as well. No headaches no chest pain no shortness of breath no abdominal pain has nausea no frequency urgency dysuria no symptoms of TIA or CVA - Related Data Home Medications Medication Instructions Recorded Confirmed Rivaroxaban [Xarelto] 20 mg PO QAM 09/25/17 01/06/18 traMADol HCL [Ultram] 50 mg PO Q6HR PRN 01/06/18 01/06/18 Previous Rx's Medication Instructions Recorded Metoclopramide HCl [Reglan] 10 mg PO BID PRN #10 tablet 01/06/18 Allergies Allergy/AdvReac Type Severity Reaction Status Date / Time acetaminophen [From Tylenol] Allergy Unknown Rash/Hives Verified 01/06/18 21:35 hydrocodone bitartrate Allergy Rash/Hives Verified 01/06/18 21:35 [From Lortab] ibuprofen [From Motrin] Allergy Rash/Hives Verified 01/06/18 21:35 propoxyphene napsylate AdvReac Unknown Nausea & Verified 01/06/18 21:35 [From Darvocet-N 100] Vomiting aspirin AdvReac Vomiting Verified 01/06/18 21:35 Review of Systems ROS Statement: Those systems with pertinent positive or pertinent negative responses have been documented in the HPI. ROS Other: All systems not noted in ROS Statement are negative. Past Medical History Past Medical History: Asthma, Deep Vein Thrombosis (DVT) Additional Past Medical History / Comment(s): ASTHMA(NO MEDS), "SLIPPED DISC LOWER BACK", PAINFUL LUMP LEFT FLANK. 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 History of Any Multi-Drug Resistant Organisms: None Reported Past Surgical History: Cholecystectomy, Tubal Ligation Past Anesthesia/Blood Transfusion Reactions: No Reported Reaction, Motion Sickness Past Psychological History: No Psychological Hx Reported, ADD/ADHD, Anxiety Smoking Status: Current every day smoker Past Alcohol Use History: None Reported Past Drug Use History: None Reported - Past Family History Mother Family Medical History: No Reported History General Exam - General Exam Comments Initial Comments: General: The patient is awake and alert, in no distress, and does not appear acutely ill. Skin: Skin is warm and dry and no rashes or lesions are noted. Eye: Pupils are equal, round and reactive to light, extra-ocular movements are intact; there is normal conjunctiva bilaterally. Ears, nose, mouth and throat: There are moist mucous membranes and no oral lesions. Neck: The neck is supple, there is no tenderness or JVD. Cardiovascular: There is a regular rate and rhythm. No murmur, rub or gallop is appreciated. Respiratory: To auscultation bilateral, no wheezing no rhonchi no distress respiratory mclean noticed Gastrointestinal: Soft, non-distended, non-tender abdomen without masses or organomegaly noted. There is no rebound or guarding present. Bowel sounds are unremarkable. Noticed a scar from her recent surgery looks nicely healed no signs of infection there Back: There is no tenderness to palpation in the midline. There is no obvious deformity. Musculoskeletal: Normal ROM, no tenderness, There is no pedal edema. There is no calf tenderness or swelling. No cords were appreciated. Neurological: CN II-XII intact, Cranial nerves III through XII are intact. There are no obvious motor or sensory deficits. Coordination appears grossly intact. Speech is normal. Psychiatric: Cooperative, appropriate mood & affect, normal judgment. Limitations: no limitations Course Vital Signs 01/06/18 01/06/18 21:32 22:45 Temperature 99.2 F 98.1 F Pulse Rate 99 58 L Respiratory 20 16 Rate Blood Pressure 109/73 96/54 O2 Sat by Pulse 96 100 Oximetry Upon review noticed CBC, CMP, acute abdominal series and urinalysis all are all unremarkable did see a few white cells in the urine urinalysis sent for cultures will keep a [place] posted once culture reports are available Medical Decision Making - Lab Data Result diagrams: 01/06/18 22:32 01/06/18 22:21 Lab Results 01/06/18 01/06/18 01/06/18 Range/Units 22:21 22:21 22:32 WBC 4.6 (3.8-10.6) k/uL RBC 4.33 (3.80-5.40) m/uL Hgb 11.9 (11.4-16.0) gm/dL Hct 35.6 (34.0-46.0) % MCV 82.1 (80.0-100.0) fL MCH 27.4 (25.0-35.0) pg MCHC 33.4 (31.0-37.0) g/dL RDW 13.3 (11.5-15.5) % Plt Count 168 (150-450) k/uL Neutrophils % 53 % Lymphocytes % 36 % Monocytes % 4 % Eosinophils % 4 % Basophils % 1 % Neutrophils # 2.4 (1.3-7.7) k/uL Lymphocytes # 1.7 (1.0-4.8) k/uL Monocytes # 0.2 (0-1.0) k/uL Eosinophils # 0.2 (0-0.7) k/uL Basophils # 0.0 (0-0.2) k/uL Sodium 141 (137-145) mmol/L Potassium 3.6 (3.5-5.1) mmol/L Chloride 109 H (98-107) mmol/L Carbon Dioxide 23 (22-30) mmol/L Anion Gap 9 mmol/L BUN 10 (7-17) mg/dL Creatinine 0.70 (0.52-1.04) mg/dL Est GFR (CKD-EPI)AfAm >90 (>60 ml/min/1.73 sqM) Est GFR (CKD-EPI)NonAf >90 (>60 ml/min/1.73 sqM) Glucose 117 H (74-99) mg/dL Calcium 9.0 (8.4-10.2) mg/dL Total Bilirubin 0.3 (0.2-1.3) mg/dL AST 19 (14-36) U/L ALT 24 (9-52) U/L Alkaline Phosphatase 65 (38-126) U/L Total Protein 7.2 (6.3-8.2) g/dL Albumin 3.7 (3.5-5.0) g/dL Amylase 57 (30-110) U/L Lipase 60 (23-300) U/L Urine Color Yellow Urine Appearance Clear (Clear) Urine pH 6.0 (5.0-8.0) Ur Specific [place] 1.021 (1.001-1.035) Urine Protein Negative (Negative) Urine Glucose (UA) Negative (Negative) Urine Ketones Negative (Negative) Urine Blood Negative (Negative) Urine Nitrite Negative (Negative) Urine Bilirubin Negative (Negative) Urine Urobilinogen 2.0 (<2.0) mg/dL Ur Leukocyte Esterase Trace H (Negative) Urine RBC 1 (0-5) /hpf Urine WBC 18 H (0-5) /hpf Ur Squamous Epith Cells 2 (0-4) /hpf Urine Mucus Moderate H (None) /hpf Disposition Clinical Impression: Nausea and vomiting, Hypotension Disposition: HOME SELF-CARE Condition: Good Instructions: Acute Nausea and Vomiting (ED) Prescriptions: Metoclopramide HCl [Reglan] 10 mg PO BID PRN #10 tablet PRN Reason: nausea and vomitting Is patient prescribed a controlled substance at d/c from ED?: No Referrals: Thaddeus Craft DO [Primary Care Provider] - 1-2 days
[2018-01-06 23:53] VITALS: BP 103/68; PULSE 87
== END 2018-01-07 | disposition home or self-care (01) ==
LOC: EC 21:23
DX: I95.9 Hypotension, unspecified (principal); R11.2 Nausea with vomiting, unspecified; F17.200 Nicotine dependence, unspecified, uncomplicated; Z86.718 Personal history of other venous thrombosis and embolism; Z79.01 Long term (current) use of anticoagulants; Z88.6 Allergy status to analgesic agent; Z88.5 Allergy status to narcotic agent; Z88.8 Allergy status to other drugs, medicaments and biological substances
CPT/HCPCS: 36415; 80053; 82150; 83690; 85025; 81001; 74022; 99284; 96374; 96361; J2405

== ENCOUNTER 2018-05-07 10:24 | Emergency (ER) | payer OTHER ==
[2018-05-07] MEDS ORDERED: IPRATROPIUM-ALBUTEROL 3 ML NEB INHALATION STA (11:01)
[2018-05-07] MEDS ORDERED: methylPREDNISolone SOD SUCCI 125 MG/2 ML VIAL IM ONE (11:02)
--- NOTE | 2018-05-07 11:04 | ED ---
General Adult HPI - General Chief complaint: Upper Respiratory Infection Stated complaint: cough for 2 weeks Time Seen by Provider: 05/07/18 10:37 Source: patient, RN notes reviewed Mode of arrival: ambulatory Limitations: no limitations - History of Present Illness Initial comments: 32-year-old female presents to the emergency department for a chief complaint of cough 2 weeks. Patient states the cough is productive. Patient states she does have a history of asthma but denies COPD. Patient is a smoker but quit smoking when she started coughing 2 weeks ago. Patient say she is only short of breath when she gets into a coughing spell but denies shortness of breath otherwise. She denies any chest pain whatsoever. Patient denies fevers or chills. Patient is on Xarelto for a blood clot in her right lower extremity from a back surgery earlier this year. Patient also admits to sore throat which started recently in the past few days. She denies ear pain. Patient denies congestion. Patient has no other complaints at this time including chest pain, abdominal pain, nausea or vomiting, headache, or visual changes. - Related Data Home Medications Medication Instructions Recorded Confirmed Rivaroxaban [Xarelto] 20 mg PO QAM 09/25/17 05/07/18 Previous Rx's Medication Instructions Recorded Albuterol Inhaler [Ventolin Hfa 1 - 2 puff INHALATION Q6HR PRN #1 05/07/18 Inhaler] inhaler Azithromycin [Zithromax Z-pack] 250 mg PO DIRECTED #6 tab 05/07/18 predniSONE 50 mg PO DAILY #5 tablet 05/07/18 Allergies Allergy/AdvReac Type Severity Reaction Status Date / Time acetaminophen [From Tylenol] Allergy Unknown Rash/Hives Verified 05/07/18 10:58 hydrocodone bitartrate Allergy Rash/Hives Verified 05/07/18 10:58 [From Lortab] ibuprofen [From Motrin] Allergy Rash/Hives Verified 05/07/18 10:58 propoxyphene napsylate AdvReac Unknown Nausea & Verified 05/07/18 10:58 [From Darvocet-N 100] Vomiting aspirin AdvReac Vomiting Verified 05/07/18 10:58 Review of Systems ROS Statement: Those systems with pertinent positive or pertinent negative responses have been documented in the HPI. ROS Other: All systems not noted in ROS Statement are negative. Past Medical History Past Medical History: Asthma, Deep Vein Thrombosis (DVT) Additional Past Medical History / Comment(s): ASTHMA(NO MEDS), "SLIPPED DISC LOWER BACK", PAINFUL LUMP LEFT FLANK. 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 History of Any Multi-Drug Resistant Organisms: None Reported Past Surgical History: Cholecystectomy, Tubal Ligation Past Anesthesia/Blood Transfusion Reactions: No Reported Reaction, Motion Sickness Past Psychological History: No Psychological Hx Reported, ADD/ADHD, Anxiety Smoking Status: Current every day smoker Past Alcohol Use History: None Reported Past Drug Use History: None Reported - Past Family History Mother Family Medical History: No Reported History General Exam Limitations: no limitations General appearance: alert, in no apparent distress Head exam: Present: atraumatic, normocephalic, normal inspection Eye exam: Present: normal appearance, PERRL, EOMI. Absent: scleral icterus, conjunctival injection, periorbital swelling ENT exam: Present: normal exam, mucous membranes moist Neck exam: Present: normal inspection, full ROM. Absent: tenderness, meningismus, lymphadenopathy Respiratory exam: Present: wheezes (Wheezing noted in the left lower lobe). Absent: respiratory distress, rales, rhonchi, stridor Cardiovascular Exam: Present: regular rate, normal rhythm, normal heart sounds. Absent: systolic murmur, diastolic murmur, rubs, gallop, clicks Neurological exam: Present: alert, oriented X3, CN II-XII intact Psychiatric exam: Present: normal affect, normal mood Course Vital Signs 05/07/18 05/07/18 05/07/18 10:27 11:33 11:38 Temperature 98.4 F 98.2 F Pulse Rate 75 76 60 Respiratory 18 20 Rate Blood Pressure 108/73 94/64 O2 Sat by Pulse 97 99 Oximetry 05/07/18 11:49 Temperature Pulse Rate 64 Respiratory Rate Blood Pressure O2 Sat by Pulse Oximetry Medical Decision Making - Medical Decision Making 32-year-old female with a past medical history of asthma presents to the emergency department for a chief complaint of productive cough 2 weeks. Patient is only short of breath with the cough and denies shortness of breath. Vitals are stable, pulse is 75 respirations 18 and pulse ox 97percent. Patient is currently on several toe for of right lower extremity DVT 6 months ago. However no suspicion of PE as patient has been on several toe for 6 months, has a productive cough with a history of asthma and does not have any significant shortness of breath. Vitals are also completely stable. Chest x-ray shows no acute cardiopulmonary process. Strep is negative as she did have a sore throat. Uvula was midline no evidence of tonsillar exudate. Wheezing noted in the left lung field. Patient was given a breathing treatment, states feeling somewhat better at this time. She was also given Solu-Medrol. Patient will be discharged home with upper respiratory infection with history of asthma. She' ll be given prednisone, also albuterol inhaler. She will be treated with azithromycin given the history. Discussed returning if she has any worsening symptoms or any shortness of breath without coughing. She will follow up with primary care in the next 1-[address] Linares - Lab Data Lab Results 05/07/18 Range/Units 11:30 Group A Strep Rapid Negative (Negative) Disposition Clinical Impression: Cough, History of asthma Disposition: HOME SELF-CARE Condition: Good Instructions: Acute Cough (ED) Additional Instructions: Please take antibiotic steroids as directed. Please use inhaler as directed. Please follow-up with primary care in the next 1-2 days. Return here to the emergency department if you have any worsening symptoms whatsoever. Prescriptions: Albuterol Inhaler [Ventolin Hfa Inhaler] 1 - 2 puff INHALATION Q6HR PRN #1 inhaler PRN Reason: Shortness Of Breath Azithromycin [Zithromax Z-pack] 250 mg PO DIRECTED #6 tab predniSONE 50 mg PO DAILY #5 tablet Is patient prescribed a controlled substance at d/c from ED?: No Referrals: Thaddeus Craft DO [Primary Care Provider] - 1-2 days Time of Disposition: 13:06
--- NOTE | 2018-05-07 11:32 | XR ---
EXAMINATION TYPE: XR chest 2V DATE OF EXAM: 05/07/2018 COMPARISON: Prior chest x-ray 01/10/2016, 01/06/2018 HISTORY: Cough and congestion for 2 weeks TECHNIQUE: Frontal and lateral views of the chest are obtained. FINDINGS: There is no focal air space opacity, pleural effusion, or pneumothorax seen. The cardiac silhouette size is within normal limits. The osseous structures are intact. Surgical clips are pres ent in the right upper quadrant. There may be a spinal curvature, patient is rotated. IMPRESSION: No acute cardiopulmonary process.
[2018-05-07 13:17] VITALS: BP 94/59; PULSE 65; RESP 18; TEMP 98.1
== END 2018-05-07 13:15 | disposition home or self-care (01) ==
LOC: EC 10:24
DX: R05 Cough (principal); R06.02 Shortness of breath; J02.9 Acute pharyngitis, unspecified; J45.909 Unspecified asthma, uncomplicated; I82.401 Acute embolism and thrombosis of unspecified deep veins of right lower extremity; F17.200 Nicotine dependence, unspecified, uncomplicated; Z90.49 Acquired absence of other specified parts of digestive tract; Z98.51 Tubal ligation status; Z79.01 Long term (current) use of anticoagulants; Z88.5 Allergy status to narcotic agent; Z88.6 Allergy status to analgesic agent; Z88.8 Allergy status to other drugs, medicaments and biological substances
CPT/HCPCS: 94640; 87081; 87430; 71046; 99284; 96372; J2930

== ENCOUNTER → 2018-10-30 | Outpatient (CLI) | payer OTHER ==
--- NOTE | 2018-10-30 12:57 | XR ---
Right knee HISTORY: Pain 3 views of the right knee correlated to prior exam 11/30/2016 Bone mineralization, joint spaces and alignment are maintained. No sizable joint effusion is evident. IMPRESSION: No fracture or dislocation.
== END ==
LOC: RADXRMAIN 12:32
PROVIDERS: ATTEND Physician Assistant
DX: M25.561 Pain in right knee (principal)

== ENCOUNTER 2018-12-04 00:51 | Emergency (ER) | payer OTHER ==
[2018-12-04 01:03] VITALS: RESP 18; TEMP 98
[2018-12-04] MEDS ORDERED: SODIUM CHLORIDE 0.9% 1,000 ML IV ONE (04:19)
[2018-12-04] MEDS ORDERED: METOCLOPRAMIDE 5 MG/ML 2 ML VIAL IVP STA (04:19)
[2018-12-04] MEDS ORDERED: diphenhydrAMINE 50 MG/ML 1 ML VIAL IVP STA (04:19)
[2018-12-04] MEDS ORDERED: KETOROLAC 30 MG/ML 1 ML VIAL IVP STA (04:19)
--- NOTE | 2018-12-04 04:25 | ED ---
Headache HPI - General Chief Complaint: Headache Stated Complaint: Migraine Time Seen by Provider: 12/04/18 04:13 Mode of arrival: ambulatory Limitations: no limitations - History of Present Illness MD Complaint: headache Onset/Timin -: days(s) Onset Description: gradual Location: right, frontal, temporal Severity: severe Quality: aching, constant, similar to previous headaches Consistency: constant Improves With: nothing Worsens With: none Context: occurred at rest Treatments Prior to Arrival: none - Related Data Home Medications Medication Instructions Recorded Confirmed Rivaroxaban [Xarelto] 20 mg PO QAM 09/25/17 05/07/18 Previous Rx's Medication Instructions Recorded Albuterol Inhaler [Ventolin Hfa 1 - 2 puff INHALATION Q6HR PRN #1 05/07/18 Inhaler] inhaler Azithromycin [Zithromax Z-pack] 250 mg PO DIRECTED #6 tab 05/07/18 predniSONE 50 mg PO DAILY #5 tablet 05/07/18 Allergies Allergy/AdvReac Type Severity Reaction Status Date / Time acetaminophen [From Tylenol] Allergy Unknown Rash/Hives Verified 12/04/18 01:02 hydrocodone bitartrate Allergy Rash/Hives Verified 12/04/18 01:02 [From Lortab] ibuprofen [From Motrin] Allergy Rash/Hives Verified 12/04/18 01:02 propoxyphene napsylate AdvReac Unknown Nausea & Verified 12/04/18 01:02 [From Darvocet-N 100] Vomiting aspirin AdvReac Vomiting Verified 12/04/18 01:02 Review of Systems ROS Statement: Those systems with pertinent positive or pertinent negative responses have been documented in the HPI. ROS Other: All systems not noted in ROS Statement are negative. Constitutional: Denies: fever, chills Eyes: Denies: eye pain, vision change ENT: Denies: ear pain, hearing loss Respiratory: Denies: cough, dyspnea Gastrointestinal: Denies: vomiting Musculoskeletal: Denies: back pain Skin: Denies: rash Neurological: Reports: as per HPI, headache. Denies: weakness, numbness, paresthesias Past Medical History Past Medical History: Asthma, Deep Vein Thrombosis (DVT) Additional Past Medical History / Comment(s): ASTHMA(NO MEDS), "SLIPPED DISC LOWER BACK", PAINFUL LUMP LEFT FLANK. 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 History of Any Multi-Drug Resistant Organisms: None Reported Past Surgical History: Back Surgery, Cholecystectomy, Tubal Ligation Past Anesthesia/Blood Transfusion Reactions: No Reported Reaction, Motion Sickness Past Psychological History: ADD/ADHD, Anxiety Smoking Status: Current every day smoker Past Alcohol Use History: None Reported Past Drug Use History: None Reported - Past Family History Mother Family Medical History: No Reported History General Exam Limitations: no limitations General appearance: alert, in no apparent distress Head exam: Present: atraumatic, normocephalic Eye exam: Present: normal appearance, PERRL, EOMI. Absent: scleral icterus, conjunctival injection, nystagmus ENT exam: Present: normal oropharynx Neck exam: Present: normal inspection Respiratory exam: Present: normal lung sounds bilaterally. Absent: respiratory distress, wheezes, rales, rhonchi, stridor Cardiovascular Exam: Present: regular rate, normal rhythm, normal heart sounds. Absent: systolic murmur, diastolic murmur, rubs, gallop GI/Abdominal exam: Present: soft. Absent: tenderness Extremities exam: Present: normal inspection, normal capillary refill. Absent: pedal edema, calf tenderness Neurological exam: Present: alert, oriented X3, CN II-XII intact. Absent: motor sensory deficit Skin exam: Present: warm, dry, intact, normal color. Absent: rash Course Vital Signs 12/04/18 00:59 Temperature 98.0 F Pulse Rate 71 Respiratory 18 Rate Blood Pressure 107/67 O2 Sat by Pulse 99 Oximetry Disposition Clinical Impression: Headache Disposition: HOME SELF-CARE Condition: Good Instructions (If sedation given, give patient instructions): Acute Headache (ED) Is patient prescribed a controlled substance at d/c from ED?: No Referrals: Thaddeus Craft DO [Primary Care Provider] - 1-2 days
[2018-12-04 06:03] VITALS: BP 99/63; PULSE 78
== END 2018-12-04 05:46 | disposition home or self-care (01) ==
LOC: EC 00:51
DX: R51 Headache (principal); F17.200 Nicotine dependence, unspecified, uncomplicated; Z88.5 Allergy status to narcotic agent; Z88.6 Allergy status to analgesic agent; Z79.01 Long term (current) use of anticoagulants; Z86.718 Personal history of other venous thrombosis and embolism
CPT/HCPCS: 99283; 96374; 96375; 96361; J1200; J2765

== ENCOUNTER → 2019-08-29 | Outpatient (CLI) | payer OTHER ==
--- NOTE | 2019-08-29 15:02 | XR ---
EXAMINATION TYPE: XR hand complete LT DATE OF EXAM: 08/29/2019 COMPARISON: NONE HISTORY: Pain TECHNIQUE: Three views are submitted. FINDINGS: The osseous structures are intact. The joint spaces are preserved and there is no acute fracture or dislocation. Sclerotic density involving the distal radius compatible with bone island. IMPRESSION: 1. No definite acute fracture or dislocation if symptoms persist, follow-up study in 7 to 10 days wo uld be suggested
== END | disposition home or self-care (01) ==
LOC: RADXRMAIN 14:48
PROVIDERS: ATTEND Emergency Medicine
DX: S60.00XA Contusion of unspecified finger without damage to nail, initial encounter (principal)

== ENCOUNTER → 2020-03-24 | Outpatient (CLI) | payer OTHER ==
--- NOTE | 2020-03-24 10:32 | XR ---
EXAMINATION TYPE: XR shoulder complete RT DATE OF EXAM: 03/24/2020 COMPARISON: NONE HISTORY: Pain TECHNIQUE: Shoulder examined in 3 views FINDINGS: The humeral head articulates with the glenoid. The acromio-clavicular junction is normal. No acute fractures or dislocations are evident. A follow up study can be performed 7-10 days from acute trauma for continued pain. IMPRESSION: 1. Normal three-view right Shoulder
--- NOTE | 2020-03-24 10:32 | CT ---
EXAMINATION TYPE: CT brain luisine wo con DATE OF EXAM: 03/24/2020 COMPARISON: 02/16/2017 HISTORY: Fall,l neck pain CT DLP: 1415 mGycm, Automated exposure control for dose reduction was used. CONTRAST: Patient injected with 0 mL of Isovue 300. CT of the brain is performed utilizing 3 mm thick sections through the posterior fossa and 3 mm thick sections through the remaining calvarium. Study is performed within 24 hours of arrival to the hospital. No abnormal hyperdensity is present to suggest an acute intracranial hemorrhage. No mass lesion is evident. No acute infarcts are evident. Ventricles and sulci are appropriate for the patient age. Paranasal sinuses and mastoid air cells within the [id number] are clear. IMPRESSIONS: 1. Normal CT brain. CT cervical spine. COMPARISON: None CT of the cervical spine is performed in the axial plane at 2 mm thick sections. Reconstructed image s in the coronal, and sagittal plane are reviewed on the computer. No acute fractures are evident. There is spina bifida occulta of C1. Vertebral body alignment is normal. Subtle scoliosis in the frontal projection may be present with co nvexity to the left. This can be related to patient positioning or muscle spasm. Disc heights are preserved. Vertebral body heights are preserved. No spinal canal stenosis is evident. No neural foraminal stenosis is evident. IMPRESSIONS: 1. No suspicious acute changes cervical spine.
== END | disposition home or self-care (01) ==
LOC: RADCTMAIN 10:00
PROVIDERS: ATTEND Emergency Medicine
DX: R20.9 Unspecified disturbances of skin sensation (principal); S13.4XXA Sprain of ligaments of cervical spine, initial encounter; S40.011A Contusion of right shoulder, initial encounter
CPT/HCPCS: 70450; 72125

== ENCOUNTER 2020-07-21 14:37 | Emergency (ER) | payer OTHER ==
[2020-07-21] MEDS ORDERED: MORPHINE SULFATE 2 MG/ML SYRINGE IVP STA (14:58)
--- NOTE | 2020-07-21 15:11 | ED ---
Chest Pain HPI - General Chief Complaint: Chest Pain Stated Complaint: Chest pain Time Seen by Provider: 07/21/20 14:44 Source: patient Mode of arrival: ambulatory Limitations: no limitations - History of Present Illness Initial Comments: Patient is a 34-year-old female presenting to the emergency Department with complaints of chest pain that then increasing over the past 2 weeks. Patient is describing the pain as the left side of her chest, lateral aspect, it worsens with movement, turning, and when she lays on that side. She states she did have history of fractured ribs many years ago. She denies any falls or trauma in the last few weeks. She does have history DVTs, currently on xarolto. She denies any fever or chills, no coughing or chest congestion. She states that last week she did file she did have a minor upper respiratory cold but her doctor prescribed her Zithromax and she is still currently on. She was tested for Covid, that is negative. She denies any abdominal pain, nausea or vomiting. She denies history of heart disease. She has no further complaints at this time. - Related Data Home Medications Medication Instructions Recorded Confirmed Rivaroxaban [Xarelto] 20 mg PO QAM 09/25/17 07/21/20 Allergies Allergy/AdvReac Type Severity Reaction Status Date / Time acetaminophen [From Tylenol] Allergy Unknown Rash/Hives Verified 07/21/20 14:40 hydrocodone bitartrate Allergy Rash/Hives Verified 07/21/20 14:40 [From Lortab] ibuprofen [From Motrin] Allergy Rash/Hives Verified 07/21/20 14:40 propoxyphene napsylate AdvReac Unknown Nausea & Verified 07/21/20 14:40 [From Darvocet-N 100] Vomiting aspirin AdvReac Vomiting Verified 07/21/20 14:40 Review of Systems ROS Statement: Those systems with pertinent positive or pertinent negative responses have been documented in the HPI. ROS Other: All systems not noted in ROS Statement are negative. EKG Findings - EKG Comments: EKG Findings:: Normal sinus rhythm, normal ECG, no signs of acute process. Ventricular rate 73, RI interval 142, QT 374. Past Medical History Past Medical History: Asthma, Deep Vein Thrombosis (DVT) Additional Past Medical History / Comment(s): ASTHMA(NO MEDS), "SLIPPED DISC LOWER BACK", PAINFUL LUMP LEFT FLANK. 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 History of Any Multi-Drug Resistant Organisms: None Reported Past Surgical History: Cholecystectomy, Tubal Ligation Additional Past Surgical History / Comment(s): Back 2018 Past Anesthesia/Blood Transfusion Reactions: No Reported Reaction, Motion Sickness Past Psychological History: No Psychological Hx Reported, ADD/ADHD, Anxiety Smoking Status: Current every day smoker Past Alcohol Use History: None Reported Past Drug Use History: None Reported - Past Family History Mother Family Medical History: No Reported History General Exam - General Exam Comments Initial Comments: GENERAL: Patient is well-developed and well-nourished. Patient is nontoxic and in no acute distress. HEAD: Atraumatic, normocephalic. EYES: Pupils equal round and reactive to light, extraocular movements intact, sclera anicteric, conjunctiva are normal. Eyelids were unremarkable. ENT: TMs normal, nares patent, oropharynx clear without exudates. Moist mucous membranes. NECK: Normal range of motion, supple without lymphadenopathy or JVD. LUNGS: Unlabored respirations. Breath sounds clear to auscultation bilaterally and equal. No wheezes rales or rhonchi. HEART: Regular rate and rhythm without murmurs, rubs or gallops. ABDOMEN: Soft, nontender, normoactive bowel sounds. No guarding, no rebound. No masses appreciated. : Deferred MUSCULOSKELETAL: Normal extremities with adequate strength and normal range of motion, no pitting or edema. No clubbing or cyanosis. Patient does have pain on palpation of the anterior chest wall, left lateral ribs as well. NEUROLOGICAL: Patient is alert and oriented x 3. Motor and sensory are also intact. Cranial nerves II through XII grossly intact. Symmetrical smile. Normal speech, normal gait. PSYCH: Normal mood, normal affect. SKIN: Warm, Dry, normal turgor, no rashes or lesions noted. Limitations: no limitations Course Vital Signs 07/21/20 07/21/20 07/21/20 14:38 14:55 16:12 Temperature 98.1 F Pulse Rate 84 80 78 Respiratory 20 18 18 Rate Blood Pressure 114/76 106/89 104/65 O2 Sat by Pulse 98 100 100 Oximetry Chest Pain [facility] Patient is a 34-year-old female here for 2 weeks of increasing chest pain most in the left side. Her vitals are stable, he did shows no acute process. Patient does have reproducible pain in the anterior chest wall as well as the left lateral side of the chest. 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 Her labs are unremarkable, her dimer was slightly elevated, did CT chest and urine to rule out PE, no evidence for PE. Chest x-ray also shows no acute process. Patient was given some pain medicine ER, she's been resting currently. I discussed the patient this is most likely inflammatory process. Recommended ice, heat to the area, rest. Patient is stable for discharge. Patient is in agreement with this plan of care. Return parameters were discussed with the patient and they verbalized understanding. Case discussed with Dr. yepez. Disposition Clinical Impression: Costochondritis Disposition: HOME SELF-CARE Condition: Stable Instructions (If sedation given, give patient instructions): Costochondritis (ED) Additional Instructions: Please return to the Emergency Department if symptoms worsen or any other concerns. Recommend ice or heat to the area. Rest. If symptoms persist, follow-up with your regular doctor Is patient prescribed a controlled substance at d/c from ED?: No Referrals: Thaddeus Craft DO [Primary Care Provider] - 1-2 days Time of Disposition: 16:53
[2020-07-21 15:15] LABS: Basophils # (A) 0.1 k/uL (0-0.2); Basophils % (A) 1 %; Eosinophils # (A) 0.3 k/uL (0-0.7); Eosinophils % (A) 6 %; HCT 37.1 % (34.0-46.0); HGB 12.3 gm/dL (11.4-16.0); Lymphocytes # (A) 1.5 k/uL (1.0-4.8); Lymphocytes % (A) 32 %; MCH 27.5 pg (25.0-35.0); MCHC 33.2 g/dL (31.0-37.0); MCV 82.8 fL (80.0-100.0); Mean Platelet Volume 7.3; Monocytes # (A) 0.2 k/uL (0-1.0); Monocytes % (A) 4 %; Neutrophils # (A) 2.5 k/uL (1.3-7.7); Neutrophils % (A) 55 %; Platelet Count 161 k/uL (150-450); RBC 4.48 m/uL (3.80-5.40); RDW 12.9 % (11.5-15.5); WBC 4.5 k/uL (3.8-10.6)
[2020-07-21 15:36] LABS: ALT 18 U/L (4-34); AST 26 U/L (14-36); African American GFR (CKD) >90 (>60 ml/min/1.73 sqM); Albumin 3.7 g/dL (3.5-5.0); Alkaline Phosphatase 55 U/L (38-126); Anion Gap 6 mmol/L; Blood Urea Nitrogen 10 mg/dL (7-17); Calcium 8.8 mg/dL (8.4-10.2); Carbon Dioxide 30 mmol/L (22-30); Chloride 105 mmol/L (98-107); Glucose 75 mg/dL (74-99); Magnesium 1.6 mg/dL (1.6-2.3); Non-African American GFR(CKD) >90 (>60 ml/min/1.73 sqM); Potassium 3.9 mmol/L (3.5-5.1); Sodium 141 mmol/L (137-145); Total Bilirubin 0.3 mg/dL (0.2-1.3); Total Protein 7.7 g/dL (6.3-8.2)
[2020-07-21 15:39] LABS: Partial Thromboplastin Time 23.2 sec (22.0-30.0); Prothrombin Time 10.2 sec (9.0-12.0)
--- NOTE | 2020-07-21 15:45 | XR ---
EXAMINATION TYPE: XR chest 2V DATE OF EXAM: 07/21/2020 COMPARISON: 05/07/2018 INDICATION: Pain TECHNIQUE: Frontal and lateral views of the chest are obtained. FINDINGS: The heart size is normal. The pulmonary vasculature is normal. The lungs are clear. No pneumothorax is evident. IMPRESSION: 1. No acute pulmonary process.
[2020-07-21 15:47] LABS: D-Dimer 0.75 mg/L FEU (<0.60)
--- NOTE | 2020-07-21 15:50 | XR ---
EXAMINATION TYPE: XR ribs LT DATE OF EXAM: 07/21/2020 COMPARISON: Chest x-ray same date HISTORY: Pain TECHNIQUE: Two-view left RIBS FINDINGS: No displaced fractures are evident. No pneumothorax is evident. Follow-up exams can be performed 7-10 days from acute trauma for continued pain. IMPRESSION: 1. No acute osseous abnormality left ribs
--- NOTE | 2020-07-21 16:40 | CT ---
CT CHEST FOR PULMONARY EMBOLISM. EXAMINATION TYPE: CT chest angio for PE DATE OF EXAM: 07/21/2020 INDICATION: Positive d-dimer, factor IV CT DLP: 210.8 mGycm, Automated exposure control for dose reduction was used. CONTRAST: Patient injected with 100, wasted 40 ml mL of Isovue 370. COMPARISON: None TECHNIQUE: CT of the chest is performed on a spiral scan at 2 mm thick sections. Study is performed with intravenous contrast timed for evaluation for pulmonary embolism. This will limit additional po rtions of the evaluation. 3-D MIP images reconstructed by the technologist are reviewed on the compu ter in the coronal and sagittal planes. FINDINGS: No persistent filling defects are evident to suggest an acute pulmonary embolism. No mediastinal or hilar adenopathy enlarged by CT criteria is evident. The ascending aorta diameter at the level of the main pulmonary artery is 2.7 cm. The main pulmonary artery diameter at the bifur cation is 2.7 cm. Lung windows are clear. Limited CT section through the upper abdomen are unremarkable. IMPRESSIONS: 1. No acute pulmonary embolism
[2020-07-21 17:06] VITALS: BP 106/65; PULSE 64; RESP 16; TEMP 98
== END 2020-07-21 17:06 | disposition home or self-care (01) ==
LOC: EC 14:37
DX: M94.0 Chondrocostal junction syndrome [Tietze] (principal); Z79.01 Long term (current) use of anticoagulants; F17.200 Nicotine dependence, unspecified, uncomplicated; Z88.6 Allergy status to analgesic agent; Z88.8 Allergy status to other drugs, medicaments and biological substances; Z86.718 Personal history of other venous thrombosis and embolism; Z90.49 Acquired absence of other specified parts of digestive tract
CPT/HCPCS: 36415; 93005; 85379; 80053; 83735; 84484; 85025; 85610; 85730; 71100; 71046; 71275; 99285; 96374; J2270; Q9967

== ENCOUNTER → 2020-07-21 | Outpatient (CLI) | payer OTHER ==
--- NOTE | 2020-07-21 14:52 | US ---
EXAMINATION TYPE: US venous doppler duplex LE DATE OF EXAM: 07/21/2020 2:31 PM COMPARISON: NONE CLINICAL HISTORY: I82.411. Hx right leg DVT. On blood thinners. Factor five. Left leg pain. SIDE PERFORMED: Bilateral TECHNIQUE: The lower extremity deep venous system is examined utilizing real time linear array sonog dana with graded compression, doppler sonography and color-flow sonography. VESSELS IMAGED: Common Femoral Vein Deep Femoral Vein Greater Saphenous Vein * Femoral Vein Popliteal Vein Small Saphenous Vein * Proximal Calf Veins (* superficial vessels) Right Leg: Positive for DVT from popliteal vein to proximal calf veins, internal echoes seen, nonocc luding. Femoral vein appears small in size. Left Leg: Negative for DVT IMPRESSION: DVT right lower extremity as noted above.
== END | disposition home or self-care (01) ==
LOC: RADUSWWP 14:03
PROVIDERS: ATTEND Internal Medicine Hematology & Oncology
DX: I82.431 Acute embolism and thrombosis of right popliteal vein (principal); I82.4Z1 Acute embolism and thrombosis of unspecified deep veins of right distal lower extremity; Z88.6 Allergy status to analgesic agent; Z88.5 Allergy status to narcotic agent
CPT/HCPCS: 93970

== ENCOUNTER 2020-08-06 16:54 | Emergency (ER) | payer OTHER ==
[2020-08-06 16:58] VITALS: BP 112/79; PULSE 92; RESP 18; TEMP 97.5
--- NOTE | 2020-08-06 17:32 | ED ---
General Adult HPI - General Chief complaint: Allergic Reaction Stated complaint: Swollen face Source: patient Mode of arrival: ambulatory Limitations: no limitations - History of Present Illness Initial comments: Patient is a 34-year-old female presents emergency Department with reported rash to her face. Patient states it's been there for 2 months. Does believe it's because she is subjected to chemicals at work. States that she does have a history of psoriasis. She is not on any current treatment. Denies any new exposures to products for which she has been putting on her face. Has not been treating the rash. Denies any fevers or chills. No headaches or neck pain. Rash also includes the dorsal aspect of the bilateral upper extremities. Presenting today to request a work note as she states her loss is refusing to move her to a different area to where there is no exposure to these chemicals. Denies any shortness of breath or oral swelling. No other alleviating, precipitating or modifying factors - Related Data Home Medications Medication Instructions Recorded Confirmed Rivaroxaban [Xarelto] 20 mg PO QAM 09/25/17 07/21/20 Previous Rx's Medication Instructions Recorded Permethrin 1% Creme Rinse [Nix 20 ml TOPICAL ONCE #60 ml 08/06/20 Creme Rinse] Tacrolimus 0.1 % TP BID #30 oint...g. 08/06/20 Allergies Allergy/AdvReac Type Severity Reaction Status Date / Time acetaminophen [From Tylenol] Allergy Unknown Rash/Hives Verified 08/06/20 16:55 hydrocodone bitartrate Allergy Rash/Hives Verified 08/06/20 16:55 [From Lortab] ibuprofen [From Motrin] Allergy Rash/Hives Verified 08/06/20 16:55 propoxyphene napsylate AdvReac Unknown Nausea & Verified 08/06/20 16:55 [From Darvocet-N 100] Vomiting aspirin AdvReac Vomiting Verified 08/06/20 16:55 Review of Systems ROS Statement: Those systems with pertinent positive or pertinent negative responses have been documented in the HPI. ROS Other: All systems not noted in ROS Statement are negative. Past Medical History Past Medical History: Asthma, Deep Vein Thrombosis (DVT) Additional Past Medical History / Comment(s): ASTHMA(NO MEDS), "SLIPPED DISC LOWER BACK", PAINFUL LUMP LEFT FLANK. 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 History of Any Multi-Drug Resistant Organisms: None Reported Past Surgical History: Cholecystectomy, Tubal Ligation Additional Past Surgical History / Comment(s): Back 2018 Past Anesthesia/Blood Transfusion Reactions: No Reported Reaction, Motion Sickness Past Psychological History: No Psychological Hx Reported, ADD/ADHD, Anxiety Smoking Status: Current every day smoker Past Alcohol Use History: None Reported Past Drug Use History: None Reported - Past Family History Mother Family Medical History: No Reported History General Exam Limitations: no limitations Course Vital Signs 08/06/20 16:55 Temperature 97.5 F L Pulse Rate 92 Respiratory 18 Rate Blood Pressure 112/79 O2 Sat by Pulse 100 Oximetry Medical Decision Making - Medical Decision Making Upon arrival patient is placed in room 6. A thorough history and physical exam was performed. Patient's rash appears consistent with psoriasis. Did discuss treatment. Physical exam also demonstrates that the patient has lice. Recommended treatment with Shampoo. Prescriptions will be sent to the pharmacy. Patient is given a work note. Did recommend follow-up with dermatology for biopsy and further treatment. Patient agreed to this. Given written and verbal discharge instructions and discharged home in stable condition Disposition Clinical Impression: Psoriasis, Lice infestation Disposition: HOME SELF-CARE Condition: Stable Instructions (If sedation given, give patient instructions): Psoriasis (ED) Additional Instructions: Follow up with dermatology as soon as possible for further treatment. Return to the ED for any new or worsening symptoms. Prescriptions: Permethrin 1% Creme Rinse [Nix Creme Rinse] 20 ml TOPICAL ONCE #60 ml Tacrolimus 0.1 % TP BID #30 oint...g. Is patient prescribed a controlled substance at d/c from ED?: No Referrals: Thaddeus Craft DO [Primary Care Provider] - 1-2 days Swetha Bolden MD [STAFF PHYSICIAN] - 1-2 days Time of Disposition: 17:32
== END 2020-08-06 17:50 | disposition home or self-care (01) ==
LOC: EC 16:54
DX: L40.9 Psoriasis, unspecified (principal); B85.2 Pediculosis, unspecified; F17.200 Nicotine dependence, unspecified, uncomplicated; Z79.01 Long term (current) use of anticoagulants; Z88.6 Allergy status to analgesic agent; Z88.5 Allergy status to narcotic agent; Z86.718 Personal history of other venous thrombosis and embolism
CPT/HCPCS: 99282

== ENCOUNTER 2021-04-09 16:11 | Emergency (ER) | payer OTHER ==
[2021-04-09 16:47] VITALS: BP 98/63; PULSE 85; RESP 18; TEMP 100.2
--- NOTE | 2021-04-09 19:13 | ED ---
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 She notes that one of the kids was positive for Covid while she was in close approximate. She'll continue to get tested for Covid. She denied any other issues or complaints she denied any symptoms. She notes that she is accident. She denied any chest pain first breath headache nausea vomiting diarrhea constipation fever fatigue chills. - Related Data Home Medications Medication Instructions Recorded Confirmed Rivaroxaban [Xarelto] 20 mg PO QAM 09/25/17 07/21/20 Previous Rx's Medication Instructions Recorded Permethrin 1% Creme Rinse [Nix 20 ml TOPICAL ONCE #60 ml 08/06/20 Creme Rinse] Tacrolimus 0.1 % TP BID #30 oint...g. 08/06/20 Allergies Allergy/AdvReac Type Severity Reaction Status Date / Time acetaminophen [From Tylenol] Allergy Unknown Rash/Hives Verified 04/09/21 16:45 hydrocodone bitartrate Allergy Rash/Hives Verified 04/09/21 16:45 [From Lortab] ibuprofen [From Motrin] Allergy Rash/Hives Verified 04/09/21 16:45 propoxyphene napsylate AdvReac Unknown Nausea & Verified 04/09/21 16:45 [From Darvocet-N 100] Vomiting aspirin AdvReac Vomiting Verified 04/09/21 16:45 Review of Systems ROS Statement: Those systems with pertinent positive or pertinent negative responses have been documented in the HPI. ROS Other: All systems not noted in ROS Statement are negative. Past Medical History Past Medical History: Asthma, Deep Vein Thrombosis (DVT) Additional Past Medical History / Comment(s): ASTHMA(NO MEDS), "SLIPPED DISC LOWER BACK", PAINFUL LUMP LEFT FLANK. 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 History of Any Multi-Drug Resistant Organisms: None Reported Past Surgical History: Cholecystectomy, Tubal Ligation Additional Past Surgical History / Comment(s): Back 2017 Past Anesthesia/Blood Transfusion Reactions: No Reported Reaction, Motion Sickness Past Psychological History: No Psychological Hx Reported, ADD/ADHD, Anxiety Smoking Status: Current every day smoker Past Alcohol Use History: None Reported Past Drug Use History: None Reported - Past Family History Mother Family Medical History: No Reported History General Exam Limitations: no limitations General appearance: alert, in no apparent distress Head exam: Present: atraumatic, normocephalic, normal inspection Eye exam: Present: normal appearance, PERRL, EOMI. Absent: scleral icterus, conjunctival injection, periorbital swelling ENT exam: Present: normal exam, mucous membranes moist Neck exam: Present: normal inspection Respiratory exam: Present: normal lung sounds bilaterally. Absent: respiratory distress, wheezes, rales, rhonchi, stridor Cardiovascular Exam: Present: regular rate, normal rhythm, normal heart sounds. Absent: systolic murmur, diastolic murmur, rubs, gallop, clicks Extremities exam: Present: normal inspection Neurological exam: Present: alert, oriented X3 Psychiatric exam: Present: normal affect, normal mood Skin exam: Present: warm, dry, intact, normal color. Absent: rash Course Vital Signs 04/09/21 16:45 Temperature 100.2 F H Pulse Rate 85 Respiratory 18 Rate Blood Pressure 98/63 O2 Sat by Pulse 98 Oximetry Medical Decision Making - Medical Decision Making 35-year-old female on a Covid test due to exposure at child school. Covid test ordered. Patient is we will discharge home and a call with test results due to lab misplacing first test. Case discussed with Dr. Simmons, patient can discharge home. Disposition Clinical Impression: Encounter for screening for COVID-19 Disposition: HOME SELF-CARE Condition: Stable Instructions (If sedation given, give patient instructions): Coronavirus Disease 2019 (COVID-19) Additional Instructions: Please return to the Emergency Department if symptoms worsen or any other concerns. If test results positive please return for monoclonal antibodies if that's what he wanted. Take Tylenol and Motrin alternating every 3 hours for fever control. Conservative management with rest fluids and Quarantine per CDC guidelines as needed. Is patient prescribed a controlled substance at d/c from ED?: No Referrals: Thaddeus Craft DO [Primary Care Provider] - 1-2 days Time of Disposition: 19:13
== END 2021-04-09 19:26 | disposition home or self-care (01) ==
LOC: EC 16:11
DX: Z20.822 Contact with and (suspected) exposure to COVID-19 (principal); J45.909 Unspecified asthma, uncomplicated; F17.200 Nicotine dependence, unspecified, uncomplicated; Z86.718 Personal history of other venous thrombosis and embolism; Z88.5 Allergy status to narcotic agent; Z88.6 Allergy status to analgesic agent
CPT/HCPCS: 87635; 99282

== ENCOUNTER 2021-06-14 20:09 | Emergency (ER) | payer OTHER ==
[2021-06-14 21:24] VITALS: BP 130/86; PULSE 95; RESP 18; TEMP 98
[2021-06-14] MEDS ORDERED: METOCLOPRAMIDE 5 MG/ML 2 ML VIAL IVP STA (23:45)
[2021-06-14] MEDS ORDERED: diphenhydrAMINE 50 MG/ML 1 ML VIAL IVP STA (23:45)
[2021-06-14] MEDS ORDERED: SODIUM CHLORIDE 0.9% 1,000 ML IV ONE (23:45)
[2021-06-14] MEDS ORDERED: PROPARACAINE 0.5% OPHTH DROPS 15 ML BTL RIGHT EYE STA (23:45)
[2021-06-14] MEDS ORDERED: FLUORESCEIN STRIPS 1 MG STRIP RIGHT EYE ONE (23:46)
--- NOTE | 2021-06-15 00:19 | ED ---
Headache HPI - General Chief Complaint: Headache Stated Complaint: Migrane Time Seen by Provider: 06/14/21 23:33 Mode of arrival: ambulatory Limitations: no limitations - History of Present Illness Initial Comments: 's patient is a 35-year-old woman who presents to be evaluated for 2 complaints. Patient's first complaint is of some bifrontal, headache that has been going on for about 3-4 days. She states that it is moderate intensity aching, without worsening or relieving factors. She had had some congestion. The patient denies trauma. It is not worst headache of life. It is not a thunderclap headache. She states she does tend to get headaches but was worried because of this one did not improve with eating like her usual headaches do. No neck stiffness. No fever or chills. No neurologic symptoms. The patient's other complaint is that on Monday morning, her dog scratched just adjacent to the right eye. The patient states that she thought that she closed her eye but was not certain if there was a scratch on the eye. She has a little bit of right eye discomfort. No change in her vision. No purulent discharge. There has been a little bit of tearing MD Complaint: headache Onset/Timin -: days(s) Onset Description: gradual Location: right, left, frontal Severity: moderate Quality: aching Consistency: constant Improves With: nothing Worsens With: eating Context: occurred at rest Treatments Prior to Arrival: none - Related Data Home Medications Medication Instructions Recorded Confirmed Rivaroxaban [Xarelto] 20 mg PO QAM 09/25/17 07/21/20 Previous Rx's Medication Instructions Recorded Permethrin 1% Creme Rinse [Nix 20 ml TOPICAL ONCE #60 ml 08/06/20 Creme Rinse] Tacrolimus 0.1 % TP BID #30 oint...g. 08/06/20 Allergies Allergy/AdvReac Type Severity Reaction Status Date / Time acetaminophen [From Tylenol] Allergy Unknown Rash/Hives Verified 06/14/21 21:24 hydrocodone bitartrate Allergy Rash/Hives Verified 06/14/21 21:24 [From Lortab] ibuprofen [From Motrin] Allergy Rash/Hives Verified 06/14/21 21:24 propoxyphene napsylate AdvReac Unknown Nausea & Verified 06/14/21 21:24 [From Darvocet-N 100] Vomiting aspirin AdvReac Vomiting Verified 06/14/21 21:24 Review of Systems ROS Statement: Those systems with pertinent positive or pertinent negative responses have been documented in the HPI. ROS Other: All systems not noted in ROS Statement are negative. Constitutional: Denies: fever, chills Eyes: Reports: as per HPI, eye pain, other. Denies: eye discharge, vision change ENT: Denies: ear pain, hearing loss, epistaxis, congestion Respiratory: Denies: cough, dyspnea Cardiovascular: Denies: chest pain, palpitations Gastrointestinal: Denies: abdominal pain, nausea, vomiting Musculoskeletal: Denies: back pain Skin: Denies: rash Neurological: Reports: headache. Denies: weakness, numbness, paresthesias Past Medical History Past Medical History: Asthma, Deep Vein Thrombosis (DVT) Additional Past Medical History / Comment(s): ASTHMA(NO MEDS), "SLIPPED DISC LOWER BACK", PAINFUL LUMP LEFT FLANK. 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 History of Any Multi-Drug Resistant Organisms: None Reported Past Surgical History: Cholecystectomy, Tubal Ligation Additional Past Surgical History / Comment(s): Back 2017 Past Anesthesia/Blood Transfusion Reactions: No Reported Reaction, Motion Sickness Past Psychological History: No Psychological Hx Reported, ADD/ADHD, Anxiety Smoking Status: Current every day smoker Past Alcohol Use History: None Reported Past Drug Use History: None Reported - Past Family History Mother Family Medical History: No Reported History General Exam Limitations: no limitations General appearance: alert, in no apparent distress Head exam: Present: atraumatic, normocephalic Eye exam: Present: normal appearance, PERRL, EOMI, conjunctival injection (Right eye). Absent: scleral icterus, periorbital tenderness ENT exam: Present: normal oropharynx Neck exam: Present: normal inspection Respiratory exam: Present: normal lung sounds bilaterally. Absent: respiratory distress, wheezes, rales, rhonchi, stridor Cardiovascular Exam: Present: regular rate, normal rhythm, normal heart sounds. Absent: systolic murmur, diastolic murmur, rubs, gallop GI/Abdominal exam: Present: soft. Absent: tenderness Neurological exam: Present: alert, oriented X3, CN II-XII intact. Absent: motor sensory deficit Skin exam: Present: warm, dry, intact, normal color. Absent: rash Course Vital Signs 06/14/21 21:22 Temperature 98 F Pulse Rate 95 Respiratory 18 Rate Blood Pressure 130/86 O2 Sat by Pulse 98 Oximetry Medical Decision Making - Medical Decision Making Exam of the right eye under magnification reveals clear anterior chamber. Fluorescein drop reveals that there is a small corneal abrasion lateral aspect. There is no foreign body. Mild conjunctival injection. Disposition Clinical Impression: Headache, Corneal abrasion, right Disposition: HOME SELF-CARE Condition: Good Instructions (If sedation given, give patient instructions): Corneal Abrasion (DC), Acute Headache (ED) Is patient prescribed a controlled substance at d/c from ED?: No Referrals: Thaddeus Craft DO [Primary Care Provider] - 1-2 days Tye Colon MD [STAFF PHYSICIAN] - 1-2 days
[2021-06-15] MEDS ORDERED: POLYMYXIN B-TRIMETHOPRIM SULF (10,000-1) OPHTH DROPS 10 ML BTL RIGHT EYE STA (01:14)
== END 2021-06-15 01:33 | disposition home or self-care (01) ==
LOC: EC 20:09
DX: S05.0 Injury of conjunctiva and corneal abrasion without foreign body (principal); R51.9 Headache, unspecified; J45.909 Unspecified asthma, uncomplicated; F17.200 Nicotine dependence, unspecified, uncomplicated; Z88.8 Allergy status to other drugs, medicaments and biological substances; Z88.6 Allergy status to analgesic agent; Z88.5 Allergy status to narcotic agent; X58.XXXA Exposure to other specified factors, initial encounter
CPT/HCPCS: 99283; 96374; 96375; 96361; J1200; J2765

== ENCOUNTER → 2021-09-08 | Outpatient (CLI) | payer OTHER ==
--- NOTE | 2021-09-09 06:43 | ECHOF ---
Referral Reason:R06.09 MEASUREMENTS -------- HEIGHT: 160.0 cm WEIGHT: 79.8 kg BP: RVIDd: 3.5 cm (< 3.3) IVSd: 1.1 cm (0.6 - 1.1) LVIDd: 4.3 cm (3.9 - 5.3) LVPWd: 0.9 cm (0.6 - 1.1) IVSs: 1.2 cm LVIDs: 2.7 cm LVPWs: 1.4 cm LAESV Index (A-L): 14.03 ml/m MV E Gordo: 0.63 m/s MV DecT: 179 ms MV A Gordo: 0.48 m/s MV E/A Ratio: 1.30 FINDINGS -------- Sinus rhythm. This was a technically adequate study. The left ventricular size is normal. Left ventricular wall thickness is normal. Overall left vent ricular systolic function is normal with, an EF between 55 - 60 %. The diastolic filling pattern is normal for the age of the patient 7.93. The right ventricle is mildly enlarged. Normal LA size by volume 22+/-6 ml/m2. The right atrial size is normal. Interatrial and interventricular septum intact. The aortic valve is trileaflet and appears structurally normal. There is no evidence of aortic regu rgitation. There is no evidence of aortic stenosis. There is trace to mild mitral regurgitation. Trace tricuspid regurgitation present. Unable to estimate RVSP due to inadequate TR jet spectral do ppler profile. There is no pulmonic regurgitation present. The aortic root size is normal. IVC Not well visulized. There is no pericardial effusion. CONCLUSIONS -------- 1. The left ventricular size is normal. 2. Left ventricular wall thickness is normal. 3. Overall left ventricular systolic function is normal with, an EF between 55 - 60 %. 4. The diastolic filling pattern is normal for the age of the patient 7.93 5. The right ventricle is mildly enlarged. 6. There is trace to mild mitral regurgitation. 7. Trace tricuspid regurgitation present. INSTRUCTIONAL MATERIAL DIRECTOR: Paris Marrero [facility]
== END | disposition home or self-care (01) ==
LOC: RADECHMAIN 13:55
PROVIDERS: ATTEND Family Medicine
DX: I34.0 Nonrheumatic mitral (valve) insufficiency (principal); I07.1 Rheumatic tricuspid insufficiency
CPT/HCPCS: 93306

== ENCOUNTER 2021-09-09 02:27 | Emergency (ER) | payer OTHER ==
--- NOTE | 2021-09-09 03:07 | ED ---
Chest Pain HPI - General Chief Complaint: Chest Pain Stated Complaint: Chest Pain Time Seen by Provider: 09/09/21 02:52 Source: patient Mode of arrival: ambulatory Limitations: no limitations - History of Present Illness MD Complaint: chest pain -: hour(s) Onset: during rest, awoke with symptoms Pain Location: substernal Pain Radiation: LUE Severity: moderate Quality: heaviness Consistency: now resolved Improves With: nothing Worsens With: nothing Anginal Symptoms: diaphoresis Treatments Prior to Arrival: none - Related Data Home Medications Medication Instructions Recorded Confirmed Apixaban [Eliquis] 5 mg PO BID 09/09/21 09/09/21 Bictegrav/Emtricit/Tenofov Ala 1 tab PO DAILY 09/09/21 09/09/21 [Biktarvy 50-200-25 mg Tablet] Clopidogrel Bisulfate [Plavix] 75 mg PO DAILY 09/09/21 09/09/21 Famotidine [Pepcid] 20 mg PO DAILY 09/09/21 09/09/21 Multivitamins, Thera [Multivitamin 1 tab PO DAILY 09/09/21 09/09/21 (formulary)] Allergies Allergy/AdvReac Type Severity Reaction Status Date / Time acetaminophen [From Tylenol] Allergy Unknown Nausea & Verified 09/09/21 07:32 Vomiting aspirin Allergy Rash/Hives Verified 09/09/21 07:32 hydrocodone bitartrate Allergy Nausea & Verified 09/09/21 07:32 [From Lortab] Vomiting ibuprofen [From Motrin] Allergy Rash/Hives Verified 09/09/21 07:32 propoxyphene napsylate AdvReac Unknown Nausea & Verified 09/09/21 07:32 [From Darvocet-N 100] Vomiting Review of Systems ROS Statement: Those systems with pertinent positive or pertinent negative responses have been documented in the HPI. ROS Other: All systems not noted in ROS Statement are negative. Constitutional: Denies: fever, chills Respiratory: Denies: cough, dyspnea Cardiovascular: Reports: chest pain, palpitations. Denies: edema, syncope Gastrointestinal: Denies: abdominal pain, nausea, vomiting Genitourinary: Denies: dysuria, hematuria Musculoskeletal: Denies: back pain Skin: Denies: rash Neurological: Denies: headache, weakness, numbness EKG Findings - EKG Results: EKG: interpreted by ERMD, sinus rhythm (Rate 89 bpm), normal axis, normal QRS, normal ST/T, no acute changes Past Medical History Past Medical History: Asthma, Deep Vein Thrombosis (DVT) Additional Past Medical History / Comment(s): ASTHMA(NO MEDS), "SLIPPED DISC LOWER BACK", PAINFUL LUMP LEFT FLANK. 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 History of Any Multi-Drug Resistant Organisms: None Reported Past Surgical History: Cholecystectomy, Tubal Ligation Additional Past Surgical History / Comment(s): Back 2017 Past Anesthesia/Blood Transfusion Reactions: No Reported Reaction, Motion Sickness Past Psychological History: No Psychological Hx Reported, ADD/ADHD, Anxiety Smoking Status: Current every day smoker Past Alcohol Use History: None Reported Past Drug Use History: None Reported - Past Family History Mother Family Medical History: No Reported History General Exam Limitations: no limitations General appearance: alert, in no apparent distress Head exam: Present: atraumatic, normocephalic Eye exam: Present: normal appearance. Absent: scleral icterus, conjunctival injection Neck exam: Present: normal inspection Respiratory exam: Present: normal lung sounds bilaterally. Absent: respiratory distress, wheezes, rales, rhonchi, stridor Cardiovascular Exam: Present: regular rate, normal rhythm, normal heart sounds. Absent: systolic murmur, diastolic murmur, rubs, gallop GI/Abdominal exam: Present: soft. Absent: distended, tenderness, guarding, rebound, rigid, mass Extremities exam: Present: normal inspection, normal capillary refill. Absent: pedal edema, calf tenderness Back exam: Present: normal inspection. Absent: CVA tenderness (R), CVA tenderness (L) Neurological exam: Present: alert Skin exam: Present: warm, dry, intact, normal color. Absent: rash Course Vital Signs 09/09/21 09/09/21 09/09/21 02:29 04:33 06:51 Temperature 97.9 F Pulse Rate 96 65 81 Respiratory 22 16 16 Rate Blood Pressure 107/74 103/56 106/67 O2 Sat by Pulse 98 98 98 Oximetry 09/09/21 07:52 Temperature 98.1 F Pulse Rate 65 Respiratory 16 Rate Blood Pressure 100/67 O2 Sat by Pulse 97 Oximetry Disposition Clinical Impression: Chest pain Disposition: HOME SELF-CARE Condition: Good Instructions (If sedation given, give patient instructions): Chest Pain (ED) Is patient prescribed a controlled substance at d/c from ED?: No Referrals: Thaddeus Craft DO [Primary Care Provider] - 1-2 days
[2021-09-09 03:22] LABS: Basophils % (A) 0 %; Eosinophils # (A) 0.1 k/uL (0-0.7); Eosinophils % (A) 1 %; HCT 37.6 % (34.0-46.0); HGB 12.6 gm/dL (11.4-16.0); Lymphocytes # (A) 1.6 k/uL (1.0-4.8); Lymphocytes % (A) 27 %; MCH 28.1 pg (25.0-35.0); MCHC 33.6 g/dL (31.0-37.0); MCV 83.9 fL (80.0-100.0); Mean Platelet Volume 7.5; Monocytes # (A) 0.2 k/uL (0-1.0); Monocytes % (A) 4 %; Neutrophils # (A) 3.9 k/uL (1.3-7.7); Neutrophils % (A) 66 %; Platelet Count 213 k/uL (150-450); RBC 4.48 m/uL (3.80-5.40); RDW 14.8 % (11.5-15.5)
[2021-09-09 03:25] LABS: Appearance,Urine Cloudy (Clear); Bacteria,Urine Rare /hpf; Bilirubin,Urine Negative (Negative); Blood,Urine Negative (Negative); Color,Urine Yellow; Glucose,Urine (UA) Negative (Negative); Ketones,Urine Negative (Negative); Leukocyte Esterase,Urine Negative (Negative); Mucus,Urine Few /hpf; Nitrite,Urine Negative (Negative); PH, Urine 7.5 (5.0-8.0); Protein,Urine Trace (Negative); RBC,Urine 1 /hpf (0-5); Specific Gravity,Urine 1.024 (1.001-1.035); Squamous Epithelial Cell,Urine 3 /hpf (0-4); WBC,Urine 1 /hpf (0-5)
[2021-09-09 03:37] LABS: Albumin 4.2 g/dL (3.5-5.0); Magnesium 1.7 mg/dL (1.6-2.3); Potassium 3.8 mmol/L (3.5-5.1); Total Bilirubin 0.3 mg/dL (0.2-1.3); Total Protein 8.1 g/dL (6.3-8.2)
[2021-09-09 03:46] LABS: INR 0.9 (<1.2); Partial Thromboplastin Time 24.5 sec (22.0-30.0); Prothrombin Time 10.2 sec (9.0-12.0)
--- NOTE | 2021-09-09 04:09 | XR ---
EXAMINATION TYPE: XR chest 2V DATE OF EXAM: 09/09/2021 COMPARISON: 07/21/2020 HISTORY: Chest pain TECHNIQUE: FINDINGS: Heart and mediastinum are normal. Lungs are clear. Diaphragm is normal. Bony thorax appears normal. IMPRESSION: Normal chest. No change.
[2021-09-09 04:50] VITALS: RESP 16
[2021-09-09] MEDS ORDERED: MAG HYDROX/AL HYDROX/SIMETH 30 ML, HYOSCYAMINE ELIXIR 10 ML, LIDOCAINE VISCOUS 2% 10 ML PO STA ×3 (06:44)
[2021-09-09 07:53] VITALS: BP 100/67; PULSE 65; TEMP 98.1
== END 2021-09-09 07:52 | disposition home or self-care (01) ==
LOC: EC 02:27
DX: R07.9 Chest pain, unspecified (principal); J45.909 Unspecified asthma, uncomplicated; F17.200 Nicotine dependence, unspecified, uncomplicated; Z88.0 Allergy status to penicillin; Z88.6 Allergy status to analgesic agent; Z88.5 Allergy status to narcotic agent
CPT/HCPCS: 36415; 71046; 80053; 81001; 81025; 83735; 84484; 85025; 85379; 85610; 85730; 93005; 99285

== ENCOUNTER → 2021-09-17 | Outpatient (CLI) | payer OTHER ==
--- NOTE | 2021-09-27 11:18 | P.CEMON ---
7 Day Event monitor note: Patient wore an event monitor for 7 days from 09/17/2021 until 09/24/2021. Findings: Patient's baseline heart rate was normal sinus rhythm. There were no signficant atrial fibrillation, atrial flutter, or ventricular tachycardia episodes. There were no significant pauses greater than 2 seconds. There were rare episodes of sinus bradycardia as well as sinus tachycardia with lowest heart rate 42 bpm which occurred at 6:30 in the morning. There were rare episodes of sinus tachycardia with maximum heart rate 178 bpm. There were a total of 9 patient activated events including chest pain as well as dizziness which corresponded predominantly with sinus rhythm and occasionally sinus tachycardia with heart rates 120 as well as 130. Majority of sinus tach ycardia was asymptomatic. Conclusions: 7 day event monitor showing normal sinus rhythm, sinus bradycardia and sinus tachycardia. Sinus bradycardia as low as 42 bpm occurring during sleeping hours which were asymptomatic. Patient activated events of dizziness and chest pain corresponding with normal sinus rhythm and rarely sinus tachycardia. Majority of sinus tachycardia appeared to be asymptomatic.
--- NOTE | 2021-09-29 11:37 | EM ---
7 Day Event monitor note: Patient wore an event monitor for 7 days from 09/17/2021 until 09/24/2021. Findings: Patient's baseline heart rate was normal sinus rhythm. There were no signficant atrial fibrillation, atrial flutter, or ventricular tachycardia episodes. There were no significant pauses greater than 2 seconds. There were rare episodes of sinus bradycardia as well as sinus tachycardia with lowest heart rate 42 bpm which occurred at 6:30 in the morning. There were rare episodes of sinus tachycardia with maximum heart rate 178 bpm. There were a total of 9 patient activated events including chest pain as well as dizziness which corresponded predominantly with sinus rhythm and occasionally sinus tachycardia with heart rates 120 as well as 130. Majority of sinus tachycardia was asymptomatic. Conclusions: 7 day event monitor showing normal sinus rhythm, sinus bradycardia and sinus tachycardia. Sinus bradycardia as low as 42 bpm occurring during sleeping hours which were asymptomatic. Patient activated events of dizziness and chest pain corresponding with normal sinus rhythm and rarely sinus tachycardia. Majority of sinus tachycardia appeared to be asymptomatic. MTDD
== END | disposition home or self-care (01) ==
LOC: RADECHMAIN 07:28
PROVIDERS: ATTEND Family Medicine
DX: R06.09 Other forms of dyspnea (principal)
CPT/HCPCS: 93270

== ENCOUNTER 2022-01-09 18:17 | Emergency (ER) | payer OTHER ==
[2022-01-09 18:35] VITALS: BP 113/79; PULSE 91; RESP 16; TEMP 98.1
[2022-01-09] MEDS ORDERED: MORPHINE SULFATE 4 MG/ML SYRINGE IM STA (19:01)
--- NOTE | 2022-01-09 19:40 | CT ---
EXAMINATION TYPE: CT thor lumbar spine wo con CT DLP: 1705.8 mGycm, Automated exposure control for dose reduction was used. DATE OF EXAM: 01/09/2022 7:32 PM COMPARISON: CT abdomen pelvis 01/10/2016. CLINICAL INDICATION:Female, 36 years old with history of fall, thinners; TECHNIQUE: Axial images of the thoracic spine were obtained without contrast. Coronal and sagittal re formats were performed. 3-D reformats of the bones were created on a separate workstation and submitt ed for review. FINDINGS: Mild multilevel disc degeneration changes are seen throughout the spine. There is no evidence of frac ture. Visualized alignment of the spine appears within normal limits. No vertebral height loss or sig nificant disc height loss is identified. No evidence of acute fracture. No evidence of significant sp inal canal or neural foraminal stenosis. They definitely needed to more every spine Bone islands are identified within the right iliac bone and left sacrum. Cholecystectomy clips are present. There is fixation hardware at L5-S1 left common iliac vein with s tent graft in place. IMPRESSION: No spinal canal or neural foraminal stenosis is identified.
--- NOTE | 2022-01-09 19:43 | CT ---
EXAMINATION TYPE: CT brain cspine wo con CT DLP: 1257 mGycm, Automated exposure control for dose reduction was used. DATE OF EXAM: 01/09/2022 7:32 PM COMPARISON: CT brain C-spine 03/24/2020. CLINICAL INDICATION:Female, 36 years old with history of fall, thinners; pain from fall, on thinners TECHNIQUE: Brain: Multiple axial CT images of the brain were obtained without IV contrast. Cspine: Axial CT images from the skull base to the inferior aspect of T2 we obtained without intraven ous contrast. Coronal and sagittal reformatted images were also reviewed. FINDINGS: Brain: Extra-axial spaces: No abnormal extra-axial fluid collections. Ventricular system: Within normal limits Cerebral parenchyma: No acute intraparenchymal hemorrhage or mass effect. The young-white junction is well differentiated. Cerebellum: Unremarkable. Mass effect: No evidence of midline shift. Intracranial vasculature: unremarkable Soft tissues: Normal. Calvarium/osseous structures: No depressed skull fracture. Paranasal sinuses and mastoid air cells: Clear. Visualized orbits: Orbital contents are intact. Cervical spine: Fracture: None. Osseous structures: No suspicious lesions. Incomplete fusion of the posterior arch of C1. Vertebral alignment: No spondylolisthesis. Mild levocurvature of the cervical spine which may be due to patient position versus muscle spasm. Spinal canal/Neural Foramina: No evidence of significant spinal canal narrowing. No evidence for sign ificant neural foraminal stenosis. Neck soft tissues: Prevertebral soft tissues are within normal limits. Other: The airway is patent. The lung apices are clear. Multiple prominent bilateral cervical lymph n odes demonstrated measuring up to 9 mm short axis. IMPRESSION: No acute intracranial process. No evidence of cervical spine fracture.
--- NOTE | 2022-01-09 19:44 | XR ---
EXAMINATION TYPE: XR chest 1V DATE OF EXAM: 01/09/2022 7:40 PM COMPARISON: Chest radiographs from 09/09/2021. TECHNIQUE: XR chest 1V Frontal view of the chest. CLINICAL INDICATION:Female, 36 years old with history of fall, thinners; FINDINGS: Lungs/Pleura: There is no evidence of pleural effusion, focal consolidation, or pneumothorax. Pulmonary vascularity: Unremarkable. Heart/mediastinum: Cardiomediastinal silhouette is unremarkable. Musculoskeletal: No acute osseous pathology. IMPRESSION: No acute cardiopulmonary disease/process.
--- NOTE | 2022-01-09 19:47 | XR ---
EXAMINATION TYPE: XR pelvis AP view DATE OF EXAM: 01/09/2022 7:40 PM INDICATION: Patient age:Female; 36 years old; Reason for study: fall, thinners; COMPARISON: Pelvic radiograph 12/31/2012, CT thoracolumbar spine 01/09/2022. TECHNIQUE: The pelvis was examined in a single projection. FINDINGS: Postsurgical changes of the lumbar spine at L5-S1. Left iliac vascular stent identified whi ch correlates to the left common vein on today's CT. There is no evidence of fracture or dislocation. There is no soft tissue abnormality. No abnormal calcifications are present. IMPRESSION: No acute osseous pathology.
--- NOTE | 2022-01-09 19:55 | ED ---
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 Patient fell last night and struck her head. Is on blood thinners. denies LOC. She is complaining of a mild headache, as well as lower spinal pain which she had surgery previously. Has a mild bilateral hip pain. No other acute complaints at this time. Patient decided to be evaluated today as she was continuing to have pain. Walked here approximately 15 minutes without issue. Presents for further evaluation of this time. Denies abdominal pain, chest pain, shortness breath. Denies any nausea or vomiting. Denies any blurry vision. Presents for further evaluation. - Related Data Home Medications Medication Instructions Recorded Confirmed Apixaban [Eliquis] 5 mg PO BID 09/09/21 09/09/21 Bictegrav/Emtricit/Tenofov Ala 1 tab PO DAILY 09/09/21 09/09/21 [Biktarvy 50-200-25 mg Tablet] Clopidogrel Bisulfate [Plavix] 75 mg PO DAILY 09/09/21 09/09/21 Famotidine [Pepcid] 20 mg PO DAILY 09/09/21 09/09/21 Multivitamins, Thera [Multivitamin 1 tab PO DAILY 09/09/21 09/09/21 (formulary)] Allergies Allergy/AdvReac Type Severity Reaction Status Date / Time acetaminophen [From Tylenol] Allergy Unknown Nausea & Verified 01/09/22 18:35 Vomiting aspirin Allergy Rash/Hives Verified 01/09/22 18:35 hydrocodone bitartrate Allergy Nausea & Verified 01/09/22 18:35 [From Lortab] Vomiting ibuprofen [From Motrin] Allergy Rash/Hives Verified 01/09/22 18:35 propoxyphene napsylate AdvReac Unknown Nausea & Verified 01/09/22 18:35 [From Darvocet-N 100] Vomiting Review of Systems ROS Statement: Those systems with pertinent positive or pertinent negative responses have been documented in the HPI. Review of Systems: CONST: Denies fever EYES: Denies blurry vision ENT: Denies nasal congestion C/V: Denies Chest pain RESP: Denies shortness of breath GI: Denies abdominal pain : Denies dysuria SKIN: Denies rash. MSK: Endorses acute on chronic lower back pain. NEURO: Denies headache ROS Other: All systems not noted in ROS Statement are negative. Past Medical History Past Medical History: Asthma, Deep Vein Thrombosis (DVT) Additional Past Medical History / Comment(s): ASTHMA(NO MEDS), "SLIPPED DISC LOWER BACK", PAINFUL LUMP LEFT FLANK. 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, blood clotting disorder History of Any Multi-Drug Resistant Organisms: None Reported Past Surgical History: Cholecystectomy, Tubal Ligation Additional Past Surgical History / Comment(s): Back 2017 Past Anesthesia/Blood Transfusion Reactions: No Reported Reaction, Motion Sickness Past Psychological History: No Psychological Hx Reported, ADD/ADHD, Anxiety Smoking Status: Current every day smoker Past Alcohol Use History: None Reported Past Drug Use History: None Reported - Past Family History Mother Family Medical History: No Reported History General Exam - General Exam Comments Initial Comments: General: Appears in mild distress secondary to pain. HEAD: Normal with no signs of head trauma. No step-offs or deformity of the scalp. Negative up sign. Negative raccoon eyes. EYES: PERRLA, EOMI, conjunctiva normal, no discharge. Pupils 2-3 mm and equal bilaterally. ENT: Hearing grossly intact, normal oropharynx. RESPIRATORY: Clear breath sounds bilaterally. No wheezes, rales, or rhonchi. C/V: Regular rate and rhythm. S1 and S2 auscultated, no edema, peripheral pulses 2+ and intact throughout ABD: Abd is soft, nontender, nondistended EXT: Normal range of motion, no obvious deformity. Mild midline lumbar and thoracic spine tenderness to palpation. Patient is somewhat chronic. No midline cervical spine tenderness to palpation. Pelvis is stable with mild tenderness palpation over bilateral hips. He can ambulate without difficulty. SKIN: No rashes or lesions observed on exposed skin. NEURO: Alert and oriented x 4. Cranial nerves II-XII intact. No focal sensory or strength deficits. GCS of 15. NIH is 0. Limitations: no limitations Course Vital Signs 01/09/22 18:31 Temperature 98.1 F Pulse Rate 91 Respiratory 16 Rate Blood Pressure 113/79 O2 Sat by Pulse 98 Oximetry Medical Decision Making - Medical Decision Making Based on the patient's presentation and physical exam, I'm concerned for possible skeletal injury for the patient. Cannot rule out 1 each medic injury secondary to her fall as well as phone thinners. We will obtain a CT brain as well as spinal CTs. We'll also obtain chest x-ray and pelvic x-ray. Will be given IM analgesia. Patient was in agreement this plan. All imaging was negative for acute process. Brain CT shows no acute intracranial process. On reevaluation come patient is feeling improved. Pain is improved. Discussed negative workup. Believe it is safe to be discharged home. She was in agreement this plan. Will use [id number] analgesia for pain control. I instructed the patient to follow up with their PCP in the next 1-3 days. I explained that the patient should return to the emergency department if they experience any worsening symptoms. Strict return precautions were discussed with the patient. The patient expressed understanding of these instructions. I answered all questions that the patient had. The patient was discharged home in good condition with their prescriptions and follow up information. Disposition Clinical Impression: Fall, Musculoskeletal pain Disposition: HOME SELF-CARE Condition: Good Instructions (If sedation given, give patient instructions): Fall Prevention (ED) Is patient prescribed a controlled substance at d/c from ED?: No Referrals: Thaddeus Craft DO [Primary Care Provider] - 1-2 days Time of Disposition: 19:55
== END 2022-01-09 20:05 | disposition home or self-care (01) ==
LOC: EC 18:17
DX: M79.18 Myalgia, other site (principal); J45.909 Unspecified asthma, uncomplicated; M54.50 Low back pain, unspecified; F17.200 Nicotine dependence, unspecified, uncomplicated; Z88.6 Allergy status to analgesic agent; Z88.8 Allergy status to other drugs, medicaments and biological substances; Z88.5 Allergy status to narcotic agent; Z79.82 Long term (current) use of aspirin; W18.09XA Striking against other object with subsequent fall, initial encounter; Y92.89 Other specified places as the place of occurrence of the external cause
CPT/HCPCS: 72170; 71045; 72128; 72125; 72131; 70450; 99284; 96372; J2270

== ENCOUNTER 2022-02-06 12:36 | Emergency (ER) | payer OTHER ==
[2022-02-06 13:06] VITALS: BP 100/67; PULSE 80; RESP 20; TEMP 98.1
--- NOTE | 2022-02-06 13:56 | ED ---
ENT HPI - General Chief complaint: ENT Stated complaint: right ear pain Time Seen by Provider: 02/06/22 13:07 Source: patient, RN notes reviewed Mode of arrival: ambulatory Limitations: no limitations - History of Present Illness Initial comments: 36-year-old female presents emergency Department chief complaint ear pain. Patient states this started days ago. Patient feels full, painful. No fevers or chills no nasal congestion or sore throat no difficulty swallowing no headache or dizziness no pain behind the ear but complains of mild pain from the ear. No drainage. - Related Data Home Medications Medication Instructions Recorded Confirmed Apixaban [Eliquis] 5 mg PO BID 09/09/21 09/09/21 Bictegrav/Emtricit/Tenofov Ala 1 tab PO DAILY 09/09/21 09/09/21 [Biktarvy 50-200-25 mg Tablet] Clopidogrel Bisulfate [Plavix] 75 mg PO DAILY 09/09/21 09/09/21 Famotidine [Pepcid] 20 mg PO DAILY 09/09/21 09/09/21 Multivitamins, Thera [Multivitamin 1 tab PO DAILY 09/09/21 09/09/21 (formulary)] Previous Rx's Medication Instructions Recorded Amoxic-Pot Clav 875-125Mg 1 tab PO Q12HR #20 tab 02/06/22 [Augmentin 875-125] Allergies Allergy/AdvReac Type Severity Reaction Status Date / Time acetaminophen [From Tylenol] Allergy Unknown Nausea & Verified 02/06/22 13:06 Vomiting aspirin Allergy Rash/Hives Verified 02/06/22 13:06 hydrocodone bitartrate Allergy Nausea & Verified 02/06/22 13:06 [From Lortab] Vomiting ibuprofen [From Motrin] Allergy Rash/Hives Verified 02/06/22 13:06 propoxyphene napsylate AdvReac Unknown Nausea & Verified 02/06/22 13:06 [From Darvocet-N 100] Vomiting Review of Systems ROS Statement: Those systems with pertinent positive or pertinent negative responses have been documented in the HPI. ROS Other: All systems not noted in ROS Statement are negative. Past Medical History Past Medical History: Asthma, Deep Vein Thrombosis (DVT) Additional Past Medical History / Comment(s): ASTHMA(NO MEDS), "SLIPPED DISC LOWER BACK", PAINFUL LUMP LEFT FLANK. 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, blood clotting disorder History of Any Multi-Drug Resistant Organisms: None Reported Past Surgical History: Cholecystectomy, Tubal Ligation Additional Past Surgical History / Comment(s): Back 2018 Past Anesthesia/Blood Transfusion Reactions: No Reported Reaction, Motion Sickness Past Psychological History: No Psychological Hx Reported, ADD/ADHD, Anxiety Smoking Status: Current every day smoker Past Alcohol Use History: None Reported Past Drug Use History: None Reported - Past Family History Mother Family Medical History: No Reported History General Exam Limitations: no limitations General appearance: alert, in no apparent distress Head exam: Present: atraumatic, normocephalic, normal inspection Eye exam: Present: normal appearance, PERRL, EOMI. Absent: scleral icterus, conjunctival injection, periorbital swelling ENT exam: Present: mucous membranes moist, normal external ear exam. Absent: normal exam, TM's normal bilaterally (Right TM erythematous) Neck exam: Present: normal inspection, full ROM. Absent: tenderness, meningismus, lymphadenopathy Respiratory exam: Present: normal lung sounds bilaterally. Absent: respiratory distress, wheezes, rales, rhonchi, stridor Cardiovascular Exam: Present: regular rate, normal rhythm, normal heart sounds. Absent: systolic murmur, diastolic murmur, rubs, gallop, clicks Course Vital Signs 02/06/22 13:04 Temperature 98.1 F Pulse Rate 80 Respiratory 20 Rate Blood Pressure 100/67 O2 Sat by Pulse 97 Oximetry Medical Decision Making - Medical Decision Making 36-year-old presented for right ear pain. Patient has otitis media patient was started on oral antibiotics. Patient discharged in stable condition return selena galloway were discussed. Disposition Clinical Impression: Otitis media Disposition: HOME SELF-CARE Condition: Stable Instructions (If sedation given, give patient instructions): Earache (ED) Additional Instructions: Please return to the Emergency Department if symptoms worsen or any other concerns. Prescriptions: Amoxic-Pot Clav 875-125Mg [Augmentin 875-125] 1 tab PO Q12HR #20 tab Is patient prescribed a controlled substance at d/c from ED?: No Referrals: Thaddeus Craft DO [Primary Care Provider] - 1-2 days Time of Disposition: 13:56
== END 2022-02-06 14:17 | disposition home or self-care (01) ==
LOC: EC 12:36
DX: H66.91 Otitis media, unspecified, right ear (principal); J45.909 Unspecified asthma, uncomplicated; Z86.718 Personal history of other venous thrombosis and embolism; F17.200 Nicotine dependence, unspecified, uncomplicated; Z88.6 Allergy status to analgesic agent; Z79.899 Other long term (current) drug therapy
CPT/HCPCS: 99282

== ENCOUNTER → 2022-02-23 | Outpatient (CLI) | payer OTHER ==
[2022-02-23 17:34] LABS: INR 0.9 (<1.2); Prothrombin Time 10.2 sec (9.0-12.0)
[2022-02-24 00:18] LABS: African American GFR (CKD) 95.1 (60.0-200.0); BUN/Creat Ratio 11.93 Ratio (12.00-20.00); Blood Urea Nitrogen 10.7 mg/dL (9.0-27.0); Calcium 9.5 mg/dL (8.7-10.3); Carbon Dioxide 27.3 mmol/L (20.0-27.5); Potassium 4.4 mmol/L (3.5-5.5)
== END | disposition home or self-care (01) ==
LOC: LABWHC1 15:07
PROVIDERS: ATTEND Surgery Vascular Surgery
DX: Z01.812 Encounter for preprocedural laboratory examination (principal)
CPT/HCPCS: 36415; 80048; 85610; 85730

== ENCOUNTER 2022-04-10 20:59 | Emergency (ER) | payer OTHER ==
[2022-04-10 21:15] VITALS: BP 116/80; PULSE 101; RESP 20; TEMP 98
[2022-04-11] MEDS ORDERED: CARBAMIDE PEROXIDE 6.5% DROPS 15 ML BTL RIGHT EAR STA (00:17)
--- NOTE | 2022-04-11 00:21 | ED ---
ENT HPI - General Chief complaint: ENT Stated complaint: RT ear pain Time Seen by Provider: 04/11/22 00:12 Source: patient, RN notes reviewed, old records reviewed Mode of arrival: ambulatory Limitations: no limitations - History of Present Illness Initial comments: 36-year-old female presents ambulatory with complaints of right ear hearing loss and discomfort for 3 months. She is requesting to have her ears irrigated as she believes it is cerumen impaction. She states she was here 3 months ago and prescribed antibiotics that did not help. She is trying to get into her primary care doctor to get a referral to ENT and cannot get in. Denies any fevers. No nausea vomiting diarrhea, headache or dizziness. MD complaint: ear pain (right) -: month(s) (3) Location: R ear - Related Data Home Medications Medication Instructions Recorded Confirmed Apixaban [Eliquis] 5 mg PO BID 09/09/21 09/09/21 Bictegrav/Emtricit/Tenofov Ala 1 tab PO DAILY 09/09/21 09/09/21 [Biktarvy 50-200-25 mg Tablet] Clopidogrel Bisulfate [Plavix] 75 mg PO DAILY 09/09/21 09/09/21 Famotidine [Pepcid] 20 mg PO DAILY 09/09/21 09/09/21 Multivitamins, Thera [Multivitamin 1 tab PO DAILY 09/09/21 09/09/21 (formulary)] Previous Rx's Medication Instructions Recorded Amoxic-Pot Clav 875-125Mg 1 tab PO Q12HR #20 tab 02/06/22 [Augmentin 875-125] Allergies Allergy/AdvReac Type Severity Reaction Status Date / Time acetaminophen [From Tylenol] Allergy Unknown Nausea & Verified 04/10/22 21:15 Vomiting aspirin Allergy Rash/Hives Verified 04/10/22 21:15 hydrocodone bitartrate Allergy Nausea & Verified 04/10/22 21:15 [From Lortab] Vomiting ibuprofen [From Motrin] Allergy Rash/Hives Verified 04/10/22 21:15 propoxyphene napsylate AdvReac Unknown Nausea & Verified 04/10/22 21:15 [From Darvocet-N 100] Vomiting Review of Systems ROS Statement: Those systems with pertinent positive or pertinent negative responses have been documented in the HPI. ROS Other: All systems not noted in ROS Statement are negative. Past Medical History Past Medical History: Asthma, Deep Vein Thrombosis (DVT) Additional Past Medical History / Comment(s): ASTHMA(NO MEDS), "SLIPPED DISC LOWER BACK", PAINFUL LUMP LEFT FLANK. 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, blood clotting disorder History of Any Multi-Drug Resistant Organisms: None Reported Past Surgical History: Cholecystectomy, Tubal Ligation Additional Past Surgical History / Comment(s): Back 2017 Past Anesthesia/Blood Transfusion Reactions: No Reported Reaction, Motion Sickness Past Psychological History: ADD/ADHD, Anxiety Smoking Status: Current every day smoker Past Alcohol Use History: None Reported Past Drug Use History: None Reported - Past Family History Mother Family Medical History: No Reported History General Exam Limitations: no limitations General appearance: alert, in no apparent distress Head exam: Present: atraumatic, normocephalic Eye exam: Absent: scleral icterus, conjunctival injection, periorbital swelling Expanded Ear exam: Present: normal external inspection TM/Canal exam: Cerumen Impaction: Right TM Mouth exam: Absent: drooling, trismus, muffled voice Neck exam: Present: full ROM Respiratory exam: Absent: respiratory distress, accessory muscle use Cardiovascular Exam: Present: tachycardia Extremities exam: Present: normal capillary refill Neurological exam: Present: alert, oriented X3, normal gait Psychiatric exam: Present: normal affect, normal mood Skin exam: Present: warm, dry, normal color. Absent: cyanosis, diaphoretic, petechiae, pallor Course Vital Signs 04/10/22 21:13 Temperature 98 F Pulse Rate 101 H Respiratory 20 Rate Blood Pressure 116/80 O2 Sat by Pulse 97 Oximetry Medical Decision Making - Medical Decision Making Ear was irrigated with peroxide and warm water with minimal cerumen noted per nurse. Patient states that she is hearing better after irrigation with less discomfort. No erythema noted. Patient was given Debrox to use at home more than twice a day for no more than 4 days. She is sniffling and states has seasonal ALLERGIES and just started taking Claritin this week. Patient's ear pressure may be related to her seasonal ALLERGIES versus cerumen. She was directed to follow-up with ENT for continuation of care. Return to emergency with any new or concerning symptoms Dr. Banks Disposition Clinical Impression: Ear ache, Cerumen in auditory canal on examination Disposition: HOME SELF-CARE Condition: Good Instructions (If sedation given, give patient instructions): Earache (ED) Additional Instructions: Use Debrox no more than twice a day for no more than 4 days. Follow-up with ENT or your primary care doctor for continuation of care. Continue taking her ALLERGY medication daily. Return to the emergency room with any new or concerning symptoms. Is patient prescribed a controlled substance at d/c from ED?: No Referrals: Thaddeus Craft DO [Primary Care Provider] - 1-2 days Time of Disposition: 01:04
== END 2022-04-11 01:15 | disposition home or self-care (01) ==
LOC: EC 20:59
DX: H61.021 Chronic perichondritis of right external ear (principal); J45.909 Unspecified asthma, uncomplicated; I82.401 Acute embolism and thrombosis of unspecified deep veins of right lower extremity; F90.9 Attention-deficit hyperactivity disorder, unspecified type; F41.9 Anxiety disorder, unspecified; F17.200 Nicotine dependence, unspecified, uncomplicated; Z79.899 Other long term (current) drug therapy; Z88.5 Allergy status to narcotic agent; Z88.6 Allergy status to analgesic agent; Z88.8 Allergy status to other drugs, medicaments and biological substances
CPT/HCPCS: 99282

== ENCOUNTER 2022-10-20 17:10 | Emergency (ER) | payer OTHER ==
[2022-10-20 17:16] VITALS: RESP 18
[2022-10-20] MEDS ORDERED: LIDOCAINE VISCOUS 2% 15 ML CUP MUCOUS MEM ONE (18:01)
--- NOTE | 2022-10-20 18:13 | ED ---
General Adult HPI - General Chief complaint: ENT Stated complaint: throat pain, ear pain Time Seen by Provider: 10/20/22 17:18 Source: patient, RN notes reviewed Mode of arrival: ambulatory Limitations: no limitations - History of Present Illness Initial comments: 36-year-old female presents to the emergency department chief complaint of burning with swallowing. She states this has been going on for 2 months. She went to see her primary care provider earlier this week who ordered a thyroid ultrasound and thyroid panel. She states that the ultrasound was scheduled for November 03 and she also states that she has an appointment with ear, nose, and throat on November 02. She states that she is able to swallow food and liquids but it catal[place]. She states she occasionally throws up her food. Denies fever, palpitations, nausea, vomiting. She states she takes medicine for acid reflux and Coumadin for factor V Leiden. - Related Data Home Medications Medication Instructions Recorded Confirmed Apixaban [Eliquis] 5 mg PO BID 09/09/21 09/09/21 Bictegrav/Emtricit/Tenofov Ala 1 tab PO DAILY 09/09/21 09/09/21 [Biktarvy 50-200-25 mg Tablet] Clopidogrel Bisulfate [Plavix] 75 mg PO DAILY 09/09/21 09/09/21 Famotidine [Pepcid] 20 mg PO DAILY 09/09/21 09/09/21 Multivitamins, Thera [Multivitamin 1 tab PO DAILY 09/09/21 09/09/21 (formulary)] Previous Rx's Medication Instructions Recorded Amoxic-Pot Clav 875-125Mg 1 tab PO Q12HR #20 tab 02/06/22 [Augmentin 875-125] Allergies Allergy/AdvReac Type Severity Reaction Status Date / Time acetaminophen [From Tylenol] Allergy Unknown Nausea & Verified 10/20/22 17:16 Vomiting aspirin Allergy Rash/Hives Verified 10/20/22 17:16 hydrocodone bitartrate Allergy Nausea & Verified 10/20/22 17:16 [From Lortab] Vomiting ibuprofen [From Motrin] Allergy Rash/Hives Verified 10/20/22 17:16 propoxyphene napsylate AdvReac Unknown Nausea & Verified 10/20/22 17:16 [From Darvocet-N 100] Vomiting Review of Systems ROS Statement: Those systems with pertinent positive or pertinent negative responses have been documented in the HPI. ROS Other: All systems not noted in ROS Statement are negative. Past Medical History Past Medical History: Asthma, Deep Vein Thrombosis (DVT) Additional Past Medical History / Comment(s): ASTHMA(NO MEDS), "SLIPPED DISC LOWER BACK", PAINFUL LUMP LEFT FLANK. 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, blood clotting disorder History of Any Multi-Drug Resistant Organisms: None Reported Past Surgical History: Cholecystectomy, Tubal Ligation Additional Past Surgical History / Comment(s): Back 2018 Past Anesthesia/Blood Transfusion Reactions: No Reported Reaction, Motion Sickness Past Psychological History: ADD/ADHD, Anxiety Smoking Status: Current every day smoker Past Alcohol Use History: None Reported Past Drug Use History: None Reported - Past Family History Mother Family Medical History: No Reported History General Exam Limitations: no limitations General appearance: alert, in no apparent distress Head exam: Present: atraumatic, normocephalic, normal inspection Eye exam: Present: normal appearance, PERRL, EOMI. Absent: scleral icterus, co njunctival injection, periorbital swelling ENT exam: Present: normal oropharynx, mucous membranes moist, other (airway patent, no erythema ). Absent: TM's normal bilaterally (cerumen impaction of right ear blocking tm ) Neck exam: Present: normal inspection, tenderness (tenderness over thyroid), full ROM Respiratory exam: Present: normal lung sounds bilaterally. Absent: respiratory distress, wheezes, rales, rhonchi, stridor Cardiovascular Exam: Present: regular rate, normal rhythm, normal heart sounds. Absent: systolic murmur, diastolic murmur, rubs, gallop, clicks GI/Abdominal exam: Present: soft, normal bowel sounds. Absent: distended, tenderness, guarding, rebound, rigid Extremities exam: Present: normal inspection, full ROM, normal capillary refill. Absent: tenderness, pedal edema, joint swelling, calf tenderness Neurological exam: Present: alert, oriented X3, CN II-XII intact Psychiatric exam: Present: normal affect, normal mood Skin exam: Present: warm, dry, intact, normal color. Absent: rash Course Vital Signs 10/20/22 17:12 Temperature 98.4 F Pulse Rate 76 Respiratory 18 Rate Blood Pressure 133/75 O2 Sat by Pulse 97 Oximetry Medical Decision Making - Medical Decision Making Was pt. sent in by a medical professional or institution ([facility], [facility], urgent care, hospital, or shelter...) When possible be specific @ -No Did you speak to anyone other than the patient for history (EMS, parent, family, police, friend...)? What history was obtained from this source @ -No Did you review nursing and triage notes (agree or disagree)? Why? @ -I reviewed and agree with nursing and triage notes Were old charts reviewed (outside hosp., previous admission, EMS record, old EKG, old radiological studies, urgent care reports/EKG's, shelter records)? Report findings @ -No old charts were reviewed Differential Diagnosis (chest pain, altered mental status, abdominal pain women, abdominal pain men, vaginal bleeding, weakness, fever, dyspnea, syncope, headache, dizziness, GI bleed, back pain, seizure, CVA, palpatations, mental health, musculoskeletal)? @ -not applicable EKG interpreted by me (3pts min.). @ -As above X-rays interpreted by me (1pt min.). @ -None done CT interpreted by me (1pt min.). @ -None done U/S interpreted by me (1pt. min.). @ -None done What testing was considered but not performed or refused? (CT, X-rays, U/S, labs)? Why? @ -None What meds were considered but not given or refused? Why? @ -None Did you discuss the management of the patient with other professionals (professionals i.e. [facility], [facility], lab, RT, psych nurse, geriatric social worker, jig borer, teacher, tank officer, disability case manager)? Give summary @ -No Was smoking cessation discussed for >3mins.? @ -No Was critical care preformed (if so, how long)? @ -No Were there social determinants of health that impacted care today? How? (Homelessness, low income, unemployed, alcoholism, drug addiction, transportation, low edu. Level, literacy, decrease access to med. care, [facility], rehab)? @ -No Was there de-escalation of care discussed even if they declined (Discuss DNR or withdrawal of care, Hospice)? DNR status @ -No What co-morbidities impacted this encounter? (DM, HTN, Smoking, COPD, CAD, Cancer, CVA, ARF, Chemo, Hep., AIDS, mental health diagnosis, sleep apnea, morbid obesity)? @ -None Was patient admitted / discharged? Hospital course, mention meds given and route, prescriptions, significant lab abnormalities, going to OR and other pertinent info. @ -discharged. Patient presented to the emergency department with chief complaint of burning with swallowing x2 months. Patients airway is patent. No erythema or tonsillar swelling. Patient is breathing well on her own and able to swallow on command. Concern for infectious etiology is low. Patient was given viscous lidocaine which she states improved her symptoms. Discussed with patient she needs to follow up with her primary care for further workup. Patient is scheduled for ENT evaluation on 11/02/22 Undiagnosed new problem with uncertain prognosis? @ -No Drug Therapy requiring intensive monitoring for toxicity (Heparin, Nitro, Insul in, Cardizem)? @ -No Were any procedures done? @ -No Diagnosis/symptom? @ -painful swallowing Acute, or Chronic, or Acute on Chronic? @ -acute Uncomplicated (without systemic symptoms) or Complicated (systemic symptoms)? @ -uncomplicated Side effects of treatment? @ -No Exacerbation, Progression, or Severe Exacerbation? @ -No Poses a threat to life or bodily function? How? (Chest pain, [place], [place], pneumonia, PE, COPD, DKA, ARF, appy, cholecystitis, CVA, Diverticulitis, Homicidal, Suicidal, threat to staff... and all critical care pts) @ -No Disposition Clinical Impression: Painful swallowing Disposition: HOME SELF-CARE Condition: Stable Additional Instructions: Please return to the Emergency Department if symptoms worsen or any other concerns. Is patient prescribed a controlled substance at d/c from ED?: No Referrals: Thaddeus Craft DO [Primary Care Provider] - 1-2 days Time of Disposition: 19:01
[2022-10-20] MEDS ORDERED: LIDOCAINE 2% GLYDO JELLY 6 ML APPL MISCELLANE ONE (18:30)
[2022-10-20] MEDS ORDERED: LIDOCAINE 2% GLYDO JELLY 6 ML APPL MISCELLANE STA (18:30)
[2022-10-20 19:22] VITALS: BP 130/76; PULSE 72; TEMP 98.2
== END 2022-10-20 19:04 | disposition home or self-care (01) ==
LOC: EC 17:10
DX: R13.10 Dysphagia, unspecified (principal); J45.909 Unspecified asthma, uncomplicated; Z86.718 Personal history of other venous thrombosis and embolism; F41.9 Anxiety disorder, unspecified; F17.200 Nicotine dependence, unspecified, uncomplicated; Z88.6 Allergy status to analgesic agent; Z88.5 Allergy status to narcotic agent; Z88.8 Allergy status to other drugs, medicaments and biological substances; Z79.01 Long term (current) use of anticoagulants; Z79.899 Other long term (current) drug therapy
CPT/HCPCS: 99283

== ENCOUNTER → 2022-11-03 | Outpatient (CLI) | payer OTHER ==
--- NOTE | 2022-11-04 06:25 | US ---
EXAMINATION TYPE: US thyroid st tissue head/neck DATE OF EXAM: 11/03/2022 COMPARISON: US 04/01/13, CT cervical spine January 09, 2022 CLINICAL INDICATION: Female, 36 years old with history of E04.9 NONTOXIC GOITER; Goiter, hx of FNA. GLAND SIZE: Right Lobe: 4.7 x 1.9 x 1.4 cm Overall Parenchyma: Sightly heterogeneous Left Lobe: 4.5 x 1.9 x 1.4 cm Overall Parenchyma: Slightly heterogeneous Isthmus Thickness: 0.28 cm NODULES RIGHT: # of nodules measured on right: 0 LEFT: # of nodules measured on left: 1 1. 1.4 X 1.0 x 0.9 cm, lower-mid mid, solid or almost completely solid, slightly hypoechoic nodule, which is wider than tall, with ill-defined margins, without echogenic foci. Prior size: 1.1 x 0.8 x 0.7 cm ISTHMUS: # of nodules measured in the isthmus: 0 Bilateral neck scanned, no evidence of lymphadenopathy. Slightly heterogeneous normal-sized thyroid with posterior isoechoic near 1.0 cm left thyroid solid n odule redemonstrated. IMPRESSION: As above. No significant change from 2013 ultrasound.
== END | disposition home or self-care (01) ==
LOC: RADUSWWP 15:37
PROVIDERS: ATTEND Family Medicine
DX: E04.1 Nontoxic single thyroid nodule (principal)
CPT/HCPCS: 76536

== ENCOUNTER → 2022-11-15 | Outpatient (CLI) | payer OTHER ==
--- NOTE | 2022-11-15 11:38 | FL ---
Modified barium swallow. HISTORY: Dysphagia. Modified barium swallow was performed with the department of speech pathology. The patient was prese nted with various consistencies of barium. There is no evidence for aspiration or penetration. Full report is to follow from the department of speech pathology. Impression: Normal study.
== END | disposition home or self-care (01) ==
LOC: RADFLMAIN 10:58
PROVIDERS: ATTEND Otolaryngology
DX: R13.10 Dysphagia, unspecified (principal)
CPT/HCPCS: 74230

== ENCOUNTER 2022-12-17 18:16 | Emergency (ER) | payer OTHER ==
[2022-12-17] MEDS ORDERED: cefTRIAXone 250 MG VIAL IM STA (21:17)
[2022-12-17] MEDS ORDERED: DOXYCYCLINE 100 MG CAP PO STA (21:17)
[2022-12-17] MEDS ORDERED: metroNIDAZOLE 500 MG TAB PO STA (21:17)
--- NOTE | 2022-12-17 21:49 | ED ---
General Adult HPI - General Chief complaint: Skin/Abscess/Foreign Body Stated complaint: Genital Rash Time Seen by Provider: 12/17/22 19:29 Source: patient, RN notes reviewed Mode of arrival: ambulatory Limitations: no limitations - History of Present Illness Initial comments: 29-year-old female presents emergency department chief complaint of vaginal d ischarge and irritation 1 week. She states that she has a greenish brown discharge and she has been going through multiple pads. She reports some odor. She states that she has some discomfort when she wipes after using the bathroom. She states that she is not sexually active but attempted to have sex today but it was too painful. Denies fever, chills, nausea, vomiting. - Related Data Home Medications Medication Instructions Recorded Confirmed Apixaban [Eliquis] 5 mg PO BID 09/09/21 09/09/21 Bictegrav/Emtricit/Tenofov Ala 1 tab PO DAILY 09/09/21 09/09/21 [Biktarvy 50-200-25 mg Tablet] Clopidogrel Bisulfate [Plavix] 75 mg PO DAILY 09/09/21 09/09/21 Famotidine [Pepcid] 20 mg PO DAILY 09/09/21 09/09/21 Multivitamins, Thera [Multivitamin 1 tab PO DAILY 09/09/21 09/09/21 (formulary)] Previous Rx's Medication Instructions Recorded Amoxic-Pot Clav 875-125Mg 1 tab PO Q12HR #20 tab 02/06/22 [Augmentin 875-125] Doxycycline [Vibramycin] 100 mg PO BID 7 Days #14 capsule 12/17/22 metroNIDAZOLE [Flagyl] 500 mg PO BID #14 tab 12/17/22 valACYclovir HCL [Valacyclovir] 1,000 mg PO BID #14 tab 12/17/22 Allergies Allergy/AdvReac Type Severity Reaction Status Date / Time acetaminophen [From Tylenol] Allergy Unknown Nausea & Verified 12/17/22 18:27 Vomiting aspirin Allergy Rash/Hives Verified 12/17/22 18:27 hydrocodone bitartrate Allergy Nausea & Verified 12/17/22 18:27 [From Lortab] Vomiting ibuprofen [From Motrin] Allergy Rash/Hives Verified 12/17/22 18:27 propoxyphene napsylate AdvReac Unknown Nausea & Verified 12/17/22 18:27 [From Darvocet-N 100] Vomiting Review of Systems ROS Statement: Those systems with pertinent positive or pertinent negative responses have been documented in the HPI. ROS Other: All systems not noted in ROS Statement are negative. Past Medical History Past Medical History: Asthma, Deep Vein Thrombosis (DVT) Additional Past Medical History / Comment(s): ASTHMA(NO MEDS), "SLIPPED DISC LOWER BACK", PAINFUL LUMP LEFT FLANK. 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, blood clotting disorder, HIV History of Any Multi-Drug Resistant Organisms: None Reported Past Surgical History: Cholecystectomy, Tubal Ligation Additional Past Surgical History / Comment(s): Back 2017 Past Anesthesia/Blood Transfusion Reactions: No Reported Reaction, Motion Sickness Past Psychological History: ADD/ADHD, Anxiety Smoking Status: Current every day smoker Past Alcohol Use History: None Reported Past Drug Use History: None Reported - Past Family History Mother Family Medical History: No Reported History General Exam Limitations: no limitations General appearance: alert, in no apparent distress Head exam: Present: atraumatic, normocephalic, normal inspection Eye exam: Present: normal appearance ENT exam: Present: normal exam, mucous membranes moist Neck exam: Present: normal inspection. Absent: tenderness, meningismus, lymphadenopathy Respiratory exam: Present: normal lung sounds bilaterally. Absent: respiratory distress, wheezes, rales, rhonchi, stridor Cardiovascular Exam: Present: regular rate, normal rhythm, normal heart sounds. Absent: systolic murmur, diastolic murmur, rubs, gallop, clicks GI/Abdominal exam: Present: soft, normal bowel sounds. Absent: distended, tenderness, guarding, rebound, rigid External exam: Present: erythema, lesions Speculum exam: Present: erythema, vaginal discharge. Absent: vaginal bleeding, foreign body, tissue Extremities exam: Present: normal inspection, full ROM, normal capillary refill. Absent: tenderness, pedal edema, joint swelling, calf tenderness Back exam: Present: normal inspection Neurological exam: Present: alert, oriented X3 Psychiatric exam: Present: normal affect, normal mood Skin exam: Present: warm, dry, intact, normal color. Absent: rash Course Vital Signs 12/17/22 12/17/22 18:25 22:13 Temperature 98.4 F 98.3 F Pulse Rate 108 H 100 Respiratory 20 16 Rate Blood Pressure 113/66 123/65 O2 Sat by Pulse 99 97 Oximetry Medical Decision Making - Medical Decision Making Was pt. sent in by a medical professional or institution ([facility], CAR DUMP[employer] OPERATOR HELPER, urgent care, hospital, or [facility]...) When possible be specific @ -No Did you speak to anyone other than the patient for history (EMS, parent, family, police, friend...)? What history was obtained from this source @ -No Did you review nursing and triage notes (agree or disagree)? Why? @ -I reviewed and agree with nursing and triage notes Were old charts reviewed (outside hosp., previous admission, EMS record, old EKG, old radiological studies, urgent care reports/EKG's, [facility] records)? Report findings @ -No old charts were reviewed Differential Diagnosis (chest pain, altered mental status, abdominal pain women, abdominal pain men, vaginal bleeding, weakness, fever, dyspnea, syncope, headache, dizziness, GI bleed, back pain, seizure, CVA, palpatations, mental health, musculoskeletal)? @ -chlamydia, BV, gonorrhea, trichomonas, PID, this list is not all inclusive EKG interpreted by me (3pts min.). @ -none X-rays interpreted by me (1pt min.). @ -None done CT interpreted by me (1pt min.). @ -None done U/S interpreted by me (1pt. min.). @ -None done What testing was considered but not performed or refused? (CT, X-rays, U/S, labs)? Why? @ -None What meds were considered but not given or refused? Why? @ -None Did you discuss the management of the patient with other professionals (professionals i.e. [facility], CAR DUMPER OPERATOR HELPER, lab, RT, psych nurse, social insurance administrator, metal gauge maker, teacher, air force senior officer, employment evaluator/case manager)? Give summary @ -No Was smoking cessation discussed for >3mins.? @ -No Was critical care preformed (if so, how long)? @ -No Were there social determinants of health that impacted care today? How? (Homelessness, low income, unemployed, alcoholism, drug addiction, transportation, low edu. Level, literacy, decrease access to med. care, prison, rehab)? @ -No Was there de-escalation of care discussed even if they declined (Discuss DNR or withdrawal of care, Hospice)? DNR status @ -No What co-morbidities impacted this encounter? (DM, HTN, Smoking, COPD, CAD, Cancer, CVA, ARF, Chemo, Hep., AIDS, mental health diagnosis, sleep apnea, morbi d obesity)? @ -None Was patient admitted / discharged? Hospital course, mention meds given and route, prescriptions, significant lab abnormalities, going to OR and other pertinent info. @ -Discharged. Patient presented to the emergency department for chief complaint of vaginal discharge and irritation x1 week. Patient had white/green vaginal discharge. Trichomonas rapid test positive. Vaginal swabs for STDs and culture were obtained and patient treated empirically for gonorrhea, chlamydia. Patient given dose of flagyl, doxy, and rocephin in ED. Prescriptions sent to patients pharmacy. Return precautions discussed. Case discussed with my attending, Dr. Lomax. Undiagnosed new problem with uncertain prognosis? @ -No Drug Therapy requiring intensive monitoring for toxicity (Heparin, Nitro, Insulin, Cardizem)? @ -No Were any procedures done? @ -No Diagnosis/symptom? @ -trichomoniasis Acute, or Chronic, or Acute on Chronic? @ -acute Uncomplicated (without systemic symptoms) or Complicated (systemic symptoms)? @ -uncomplicated Side effects of treatment? @ -No Exacerbation, Progression, or Severe Exacerbation? @ -No Poses a threat to life or bodily function? How? (Chest pain, [place], ND, pneumonia, PE, COPD, DKA, ARF, appy, cholecystitis, CVA, Diverticulitis, Homicidal, Suicidal, threat to staff... and all critical care pts) @ -No - Lab Data Lab Results 12/17/22 12/17/22 Range/Units 20:45 20:46 Urine Color Yellow Urine Appearance Cloudy H (Clear) Urine pH 6.5 (5.0-8.0) Ur Specific [place] 1.034 (1.001-1.035) Urine Protein 1+ H (Negative) Urine Glucose (UA) Negative (Negative) Urine Ketones Trace H (Negative) Urine Blood Moderate H (Negative) Urine Nitrite Negative (Negative) Urine Bilirubin Negative (Negative) Urine Urobilinogen 2.0 (<2.0) mg/dL Ur Leukocyte Esterase Large H (Negative) Urine RBC 163 H (0-5) /hpf Urine WBC 74 H (0-5) /hpf Ur Squamous Epith Cells 6 H (0-4) /hpf Urine Bacteria Occasional H (None) /hpf Hyaline Casts 2 (0-2) /lpf Urine Mucus Many H (None) /hpf Trichomonas Ag (Rapid) Positive H (Negative) Disposition Clinical Impression: Trichomonas infection Disposition: HOME SELF-CARE Condition: Stable Instructions (If sedation given, give patient instructions): Cervicitis (ED) Additional Instructions: Please refrain from sexual intercourse for 2 weeks. Have any partners get treated. Please take antibiotics to completion. Return to the emergency department for new or worsening symptoms. Prescriptions: metroNIDAZOLE [Flagyl] 500 mg PO BID #14 tab valACYclovir HCL [Valacyclovir] 1,000 mg PO BID #14 tab Doxycycline [Vibramycin] 100 mg PO BID 7 Days #14 capsule Is patient prescribed a controlled substance at d/c from ED?: No Referrals: Thaddeus Craft DO [Primary Care Provider] - 1-2 days Time of Disposition: 22:04
[2022-12-17 21:55] LABS: Appearance,Urine Cloudy (Clear); Bacteria,Urine Occasional /hpf; Bilirubin,Urine Negative (Negative); Blood,Urine Moderate (Negative); Color,Urine Yellow; Glucose,Urine (UA) Negative (Negative); Hyaline Casts,Urine 2 /lpf (0-2); Ketones,Urine Trace (Negative); Leukocyte Esterase,Urine Large (Negative); Mucus,Urine Many /hpf; Nitrite,Urine Negative (Negative); PH, Urine 6.5 (5.0-8.0); Protein,Urine 1+ (Negative); RBC,Urine 163 /hpf (0-5); Specific Gravity,Urine 1.034 (1.001-1.035); Squamous Epithelial Cell,Urine 6 /hpf (0-4); WBC,Urine 74 /hpf (0-5)
[2022-12-17 22:14] VITALS: BP 123/65; PULSE 100; RESP 16; TEMP 98.3
== END 2022-12-17 22:19 | disposition home or self-care (01) ==
LOC: EC 18:16
DX: A59.9 Trichomoniasis, unspecified (principal); J45.909 Unspecified asthma, uncomplicated; Z86.718 Personal history of other venous thrombosis and embolism; F41.9 Anxiety disorder, unspecified; F17.200 Nicotine dependence, unspecified, uncomplicated; Z88.5 Allergy status to narcotic agent; Z88.6 Allergy status to analgesic agent; Z88.1 Allergy status to other antibiotic agents; Z88.8 Allergy status to other drugs, medicaments and biological substances; Z79.01 Long term (current) use of anticoagulants; Z79.899 Other long term (current) drug therapy
CPT/HCPCS: 81001; 87808; 87491; 87591; 87070; 87086; 99283; 96372; J0696

== ENCOUNTER 2024-08-16 12:26 | Day surgery (SDC) | payer OTHER ==
[2024-08-14 14:58] VITALS: BMI 29.2
[2024-08-16 13:48] VITALS: TEMP 97.4
[2024-08-16] MEDS: LACTATED RINGERS 1,000 ML IV SCH (14:00)
[2024-08-16] MEDS: IV FLUID CONTINUATION 1,000 ML IV ONE (14:04)
[2024-08-16 14:31] LABS: INR 1.8 (<1.2); Prothrombin Time 18.5 sec (10.0-12.5)
[2024-08-16] MEDS ORDERED: LIDOCAINE 1% INJ 10MG/ML (20 ML MDV) ONE (14:58)
[2024-08-16] MEDS ORDERED: PROPOFOL 10 MG/ML 20 ML VIAL IV ONE (14:58)
--- NOTE | 2024-08-16 15:22 | P.PCN ---
Date of Procedure: 08/16/24 Procedure(s) Performed: BRIEF HISTORY: Patient is a 38-year-old, pleasant, white female scheduled for an upper endoscopy as a part evaluation of intermittent episodes of nausea vomiting and hematemesis for the last 6 weeks duration.. History of DVT and on Coumadin. INR today is 1.8. PROCEDURE PERFORMED: Esophagogastroduodenoscopy with biopsy. PREOPERATIVE DIAGNOSIS: Intermittent episodes of nausea vomiting and hematemesis. IV sedation per anesthesia. PROCEDURE: After informed consent was obtained, the patient was brought into the endoscopy unit. IV sedation was administered by Anesthesia under continuous monitoring. Initially the Olympus GIF-140 video endoscope was inserted into the mouth. Esophagus intubated without any difficulty. It was gradually advanced into the stomach and duodenum and carefully examined. The bulb and the second part of the duodenum appeared normal. The scope at this time was withdrawn to the stomach, adequately insufflated with air, and upon careful examination, mucosa of the antrum, body, cardia and the fundus appeared normal. The scope was then withdrawn into the esophagus. Small hiatal hernia noted. The GE junction was located at 39 cm from the incisors. The esophagus appeared normal. There were 2 superficial erosions noted in the distal esophagus consistent with LA grade B reflux esophagitis and the patient tolerated the procedure well. IMPRESSION: 1. Small hiatal hernia. 2. Superficial erosions in the distal esophagus consistent with LA grade B reflux esophagitis. RECOMMENDATIONS: The findings of this examination were discussed with the patient as well as her family. Advised to continue on Protonix 40 mg twice daily and follow antireflux measures..
[2024-08-16 16:05] VITALS: BP 107/68; PULSE 50; RESP 18
== END 2024-08-16 16:14 | disposition home or self-care (01) ==
LOC: ORWHC2ENDO 12:26
PROVIDERS: ATTEND Internal Medicine Gastroenterology
DX: K92.0 Hematemesis (principal); K22.10 Ulcer of esophagus without bleeding; K21.9 Gastro-esophageal reflux disease without esophagitis; K44.9 Diaphragmatic hernia without obstruction or gangrene; J45.909 Unspecified asthma, uncomplicated; F90.9 Attention-deficit hyperactivity disorder, unspecified type; Z79.01 Long term (current) use of anticoagulants; Z79.624 Long term (current) use of inhibitors of nucleotide synthesis; Z79.899 Other long term (current) drug therapy; Z86.718 Personal history of other venous thrombosis and embolism; Z88.6 Allergy status to analgesic agent; Z88.8 Allergy status to other drugs, medicaments and biological substances
CPT/HCPCS: 43235; 85610